=== PATIENT | female | born 1990 | race Caucasian/White ===

== ENCOUNTER 2019-07-18 10:02 | Emergency (ER) | payer MEDICAID, SELFPAY ==
[2019-07-18 10:23] VITALS: BMI 35.4
[2019-07-18 10:26] VITALS: BP 142/76; PULSE 135; RESP 18; TEMP 37.6; O2SAT 98
[2019-07-18 10:53] LABS: Rapid Strep A Test Negative (Negative)
[2019-07-18 11:05] LABS: Influenza A by IFA Negative (Negative); Influenza B by IFA Negative (Negative)
--- NOTE | 2019-07-18 12:09 | ED_ITS ---
HPI - General Adult General: Chief complaint: General Medical Stated complaint: hard to swollow Time Seen by Provider: 07/18/19 11:48 Source: patient Mode of arrival: ambulatory Limitations: no limitations History of Present Illness: HPI narrative: Patient comes in today with 2-day episode of sore throat. Patient appears unwell. Patient appears in mild to moderate pain. Respirations are even, airway is intact. Patient is managing secretions well. Review of Systems General: Reports: 10 or more systems reviewed and unremarkable except in HPI and below ENMT: Reports: throat pain PFSH ED PFSH: Statuses (acute, chronic, etc) shown below reflect problem list status as previously entered and may not be historically accurate Social History Smoking and tobacco status: never smoked Female Reproductive History: Date of last menstrual period: 06/26/19 Physical Exam Const: COMMON NORMALS: no apparent distress and oriented x3 GENERAL APPEARANCE: cooperative HENMT: COMMON NORMALS: normocephalic, external ears normal, EAC's normal, TM's normal bilaterally and external nose normal HEAD & SCALP: normal to inspection and normocephalic FACE & SINUS: normal facial exam NOSE: external nose normal GENERAL EAR: hearing not grossly impaired EXTERNAL EAR: Yes external ears normal EXTERNAL AUDITORY CANAL: EAC's normal TYMPANIC MEMBRANE: TM's normal bilaterally MOUTH: oral and palatal mucosa normal THROAT: tonsils abnormal bilateral erythema, exudates and hypertrophy Eye: COMMON NORMALS: PERRL and EOMs intact bilaterally PUPIL: Yes PERRL Neck/C-Spine: COMMON NORMALS: full ROM and no lymphadenopathy Lymph: LYMPHATIC: no lymphedema noted Chest: COMMONS NORMALS: inspection of chest normal and palpation of chest normal Resp: COMMON NORMALS: normal respiratory effort and clear to auscultation bilaterally AUSCULTATION: clear to auscultation bilaterally Cardio: COMMON NORMALS: regular rate and regular rhythm RATE: regular rate RHYTHM: regular rhythm GI: COMMON NORMALS: normal to inspection, nondistended, normoactive bowel sounds and non-tender : COMMON NORMALS: Yes no CVA tenderness BLADDER/KIDNEY EXAM: Yes no CVA tenderness Back/Pelvis: COMMON NORMALS: no CVA tenderness and thoracic and lumbar spine normal to inspection Extremity: COMMON NORMALS: normal to inspection GENERAL: No edema Neuro: COMMON NORMALS: oriented x3, moves all extremities and no focal motor deficits Psych: COMMON NORMALS: mental status grossly normal and cooperative Skin: COMMON NORMALS: no rashes or lesions noted GENERAL SKIN EXAM: no rashes or lesions noted Course Vital Signs: Vital signs: Vital Signs Temperature 99.6 F 07/18/19 10:26 Pulse Rate 135 H 07/18/19 10:26 Respiratory Rate 18 07/18/19 10:26 Blood Pressure 142/76 07/18/19 10:26 Pulse Oximetry 98 07/18/19 10:26 MDM - General Adult MDM Narrative: Medical decision making narrative: Patient comes in today with sore throat and tonsillar enlargement. Exam notes bilateral tonsillar hypertrophy with exudate. Patient handle secretions well. Airway is intact. Differential diagnosis includes tonsillitis, Ludewig's angina, peritonsillar abscess, strep pharyngitis, infectious mono. Laboratory values were significant for elevated white blood cell count 15,000, normal liver enzymes, negative flu and strep. Reviewed exam with patient with recommendations for antibiotics and steroids. Patient reports understanding did have improvement after a dose of Decadron in the ER with discomfort and swelling. Lab Data: Labs: Lab Results 07/18/19 07/18/19 07/18/19 Range/Units 10:30 10:30 12:30 WBC 15.5 H (4.0-10.0) 10^3/ uL RBC 4.63 (4.1-5.3) 10^6/u L Hgb 13.1 (11.5-15.3) g/dL Hct 40.9 (37.0-47.0) % MCV 88.3 (81-99) fL MCH 28.3 (28.0-34.0) pg MCHC 32.0 (30.0-36.0) g/dL RDW 12.9 (12.1-15.1) % Plt Count 213 (130-400) 10^3/c mm MPV 10.6 H (7.4-10.4) fL Neut % (Auto) 85.2 % Lymph % (Auto) 7.2 % [place] % (Auto) 6.9 % Eos % (Auto) 0.0 % Baso % (Auto) 0.2 % Neut # (Auto) 13.2 H (1.8-7.7) 10^3/u L Lymph # (Auto) 1.1 (0.8-4.8) 10^3/u L [place] # (Auto) 1.1 H (0.2-0.9) 10^3/u L Eos # (Auto) 0.0 (0.0-0.8) 10^3/u L Baso # (Auto) 0.0 (0.0-0.1) 10^3/u L Nucleated RBC % (a uto) 0 % Nucleated RBCs # 0.0 /100WBC Sodium (136-145) mmol/L Potassium (3.5-5.1) mmol/L Chloride (98-107) mmol/L Carbon Dioxide (22-29) mmol/L Anion Gap (5-19) BUN (6-20) mg/dL Creatinine (0.5-0.9) mg/dL GFR Calculation (90-130) mL/min Glucose (74-109) mg/dL Calcium (8.5-10.5) mg/dL Total Bilirubin (0.15-1.2) mg/dL AST (0-32) U/L ALT (0-33) U/L Alkaline Phosphata se (35-105) IU/L Total Protein (6.6-8.7) g/dL Albumin (3.5-5.2) g/dL Globulin (1.3-4.6) g/dL Influenza Type A A g Negative (Negative) POC Influenza B Ag Negative (Negative) Group A Strep Rapi d Negative (Negative) 07/18/19 Range/Units 12:30 WBC (4.0-10.0) 10^3/ uL RBC (4.1-5.3) 10^6/u L Hgb (11.5-15.3) g/dL Hct (37.0-47.0) % MCV (81-99) fL MCH (28.0-34.0) pg MCHC (30.0-36.0) g/dL RDW (12.1-15.1) % Plt Count (130-400) 10^3/c mm MPV (7.4-10.4) fL Neut % (Auto) % Lymph % (Auto) % [place] % (Auto) % Eos % (Auto) % Baso % (Auto) % Neut # (Auto) (1.8-7.7) 10^3/u L Lymph # (Auto) (0.8-4.8) 10^3/u L [place] # (Auto) (0.2-0.9) 10^3/u L Eos # (Auto) (0.0-0.8) 10^3/u L Baso # (Auto) (0.0-0.1) 10^3/u L Nucleated RBC % (a uto) % Nucleated RBCs # /100WBC Sodium 133 L (136-145) mmol/L Potassium 3.7 (3.5-5.1) mmol/L Chloride 99 (98-107) mmol/L Carbon Dioxide 20 L (22-29) mmol/L Anion Gap 17.7 (5-19) BUN 10 (6-20) mg/dL Creatinine 0.7 (0.5-0.9) mg/dL GFR Calculation 100.4 (90-130) mL/min Glucose 109 (74-109) mg/dL Calcium 9.8 (8.5-10.5) mg/dL Total Bilirubin 0.5 (0.15-1.2) mg/dL AST 12 (0-32) U/L ALT 12 (0-33) U/L Alkaline Phosphata se 103 (35-105) IU/L Total Protein 7.4 (6.6-8.7) g/dL Albumin 4.3 (3.5-5.2) g/dL Globulin 3.1 (1.3-4.6) g/dL Influenza Type A A g (Negative) POC Influenza B Ag (Negative) Group A Strep Rapi d (Negative) Discharge Plan Discharge Patient Disposition: Home, Self-Care Clinical Impression: Acute bacterial tonsillitis Condition: Stable Prescriptions: New clindamycin HCl 150 mg capsule 450 mg PO BID 10 Days Qty: 60 RF: 0 prednisone 20 mg tablet 20 mg PO DAILY 5 Days Qty: 5 RF: 0 Discharge Orders: Discharge Order (Routine); Ordered 07/18/19 Ordered By: Grayson Riley Referrals: Emily Lin MD [Primary Care Provider] - Discharge Diet: Usual diet Discharge Activity: Resume usual activity Patient Instructions: Tonsillitis (ED) Activity Restrictions/Additional Instructions: Activity as tolerated Acetaminophen or ibuprofen for pain Follow-up as needed Return to ER for any concerns Coding Level of Care Code ED Monitor Tech for Chg Fwd Exam Problem Focused
[2019-07-18] MEDS: dexamethasone 10 mg/mL INJ IM (12:37)
[2019-07-18 12:41] LABS: Basophils % 0.2 %; Hematocrit 40.9 % (37.0-47.0); Hemoglobin 13.1 g/dL (11.5-15.3); Lymphocytes # 1.1 10^3/uL (0.8-4.8); Lymphocytes % 7.2 %; Mean Corpuscular Hemoglobin 28.3 pg (28.0-34.0); Mean Corpuscular Volume 88.3 fL (81-99); Mean Platelet Volume 10.6 fL (7.4-10.4); Monocytes # 1.1 10^3/uL (0.2-0.9); Monocytes % 6.9 %; Neutrophils # 13.2 10^3/uL (1.8-7.7); Neutrophils % 85.2 %; Nucleated Red Blood Cells % 0 %; Platelet Count 213 10^3/cmm (130-400); Red Blood Count 4.63 10^6/uL (4.1-5.3); Red Cell Distribution Width 12.9 % (12.1-15.1); White Blood Count 15.5 10^3/uL (4.0-10.0)
[2019-07-18 12:56] LABS: Alanine Aminotransferase 12 U/L (0-33); Albumin Level 4.3 g/dL (3.5-5.2); Alkaline Phosphatase 103 IU/L (35-105); Anion Gap 17.7 (5-19); Aspartate Amino Transferase 12 U/L (0-32); Blood Urea Nitrogen 10 mg/dL (6-20); Calcium 9.8 mg/dL (8.5-10.5); Carbon Dioxide 20 mmol/L (22-29); Chloride 99 mmol/L (98-107); Creatinine Clr Calc Pharmacy 129.0714; Globulin 3.1 g/dL (1.3-4.6); Glomerular Filtration Rate 100.4 mL/min (90-130); Glucose 109 mg/dL (74-109); Potassium 3.7 mmol/L (3.5-5.1); Sodium 133 mmol/L (136-145); Total Bilirubin 0.5 mg/dL (0.15-1.2); Total Protein 7.4 g/dL (6.6-8.7)
== END 2019-07-18 13:30 | disposition home or self-care (01) ==
PROVIDERS: Family Medicine; Emergency Provider Nurse Practitioner Family; Family Provider Family Medicine; PCP Family Medicine
DX: J03.80 Acute tonsillitis due to other specified organisms (principal)
CPT/HCPCS: 36415; 80053; 85025; 87081; 87804; 87880; 96372; 99282; J1100

== ENCOUNTER 2019-09-24 11:25 | Outpatient (CLI) | payer MEDICAID, SELFPAY ==
--- NOTE | 2019-09-24 11:30 | XR_ITS ---
WS: [id number] ANKLE LEFT TECHNIQUE: 3 views of the left ankle CLINICAL INFORMATION: L ANKLE PAIN COMPARISON: None. FINDINGS: Normal ankle mortise. Talar dome is normal. No visualized fractures. Normal visualized soft tissues. Slightly hypertrophic spurring along the anterior tibial plafond. Normal medial and lateral malleolus . XR/XR ankle LT min 3V* [id number] IMPRESSION: No acute fractures
== END 2019-09-24 11:26 | disposition home or self-care (01) ==
LOC: RADWPI 11:28
PROVIDERS: Family Provider Family Medicine; PCP Family Medicine; Visit Provider Family Medicine
DX: M25.572 Pain in left ankle and joints of left foot (principal)
CPT/HCPCS: 73610

== ENCOUNTER → 2019-11-19 14:13 | Outpatient (BNVA) | payer MEDICAID, SELFPAY | PROVIDERS: Family Provider Family Medicine; PCP Family Medicine; Referring Provider Family Medicine; Visit Provider Podiatrist Foot & Ankle Surgery | DX: M25.572 Pain in left ankle and joints of left foot (principal) | CPT/HCPCS: 73610 ==

== ENCOUNTER 2020-03-10 14:56 | Emergency (ER) | payer MEDICAID, SELFPAY ==
[2020-03-10 14:59] VITALS: BP 124/77; PULSE 96; RESP 18; TEMP 36.3; O2SAT 98; BMI 38.0
--- NOTE | 2020-03-10 15:28 | ED_ITS ---
HPI - Recheck/Abnormal Lab/Rx General: Chief Complaint: Recheck/Abnormal Lab/Rx Stated Complaint: wants test Time Seen by Provider: 03/10/20 15:17 Source: patient Mode of arrival: ambulatory Limitations: no limitations History of Present Illness: HPI narrative: Pt presents after positive preg test last night, cramping today, states no period in 2 months (on BC pills) Review of Systems General: Reports: 10 or more systems reviewed and unremarkable except in HPI and below PFSH ED PFSH: Social History Smoking and tobacco status: never smoked Alcohol intake: never Substance/Drug Use: never Female Reproductive History: Date of last menstrual period: 01/08/20 Physical Exam Const: COMMON NORMALS: no acute distress, patient oriented x3, no limitations and alert GENERAL APPEARANCE: cooperative and comfortable ORIENTATION/CONSCIOUSNESS: Yes awake, Yes oriented to person, Yes oriented to place and Yes oriented to time HENMT: COMMON NORMALS: normocephalic, atraumatic, external ears normal, EAC's normal, TM's normal bilaterally and Normal external nose present HEAD & SCALP: normal to inspection, normocephalic and atraumatic FACE & SINUS: normal facial exam, sinuses nontender and face symmetric NOSE: Normal external nose present, Normal nares present and No nasal discharge present EXTERNAL EAR: Yes external ears normal EXTERNAL AUDITORY CANAL: EAC's normal TYMPANIC MEMBRANE: TM's normal bilaterally MOUTH: Normal oral and palatal mucosa present, lip normal and tongue normal THROAT: posterior oropharynx normal, tonsils normal and uvula midline Eye: COMMON NORMALS: Equal, round and reactive pupils present, EOMs intact bilaterally and conjunctivae normal GENERAL EYE: appearance normal, both eyes and all related structures and normal light reflex EYELID: eyelids normal CONJUNCTIVA: Yes conjunctivae normal PUPIL: Yes Equal, round and reactive pupils present EOM: Yes EOM abnormal DIRECT OPHTHALMOSCOPY: Yes normal light reflex Neck/C-Spine: COMMON NORMALS: full ROM, no lymphadenopathy, supple, no meningeal signs, no JVD and Thyroid normal GENERAL: Yes normal visual inspection THYROID: Thyroid normal CERVICAL SPINE: Yes cervical ROM normal and Yes normal cervical lordosis Lymph: LYMPHATIC: no lymphadenopathy noted Chest: COMMONS NORMALS: normal inspection of the chest and normal palpation of entire chest wall Resp: COMMON NORMALS: normal respiratory effort, No retractions and clear to auscultation bilaterally AUSCULTATION: clear to auscultation bilaterally Cardio: COMMON NORMALS: no JVD, regular rate, regular rhythm, S1 normal heart sound present, S2 normal heart sound present, No gallops present (Cardio), No clicks present (Cardio), No murmurs present (Cardio), No rub (Cardio) and Peripheral pulses 2+ throughout RATE: regular rate RHYTHM: regular rhythm HEART SOUNDS: S1 normal heart sound present and S2 normal heart sound present PERIPHERAL PULSES: Peripheral pulses 2+ throughout GI: COMMON NORMALS: Normal to inspection, nondistended, normoactive bowel sounds present, Soft to palpation, non-tender and no masses PALPATION: Yes Soft to palpation : COMMON NORMALS: Yes no CVA tenderness and Yes normal external appearance BLADDER/KIDNEY EXAM: Yes no CVA tenderness Back/Pelvis: COMMON NORMALS: no CVA tenderness, thoracic and lumbar spine normal to inspection, no thoracic nor lumbar tenderness and thoraco-lumbar ROM normal Extremity: COMMON NORMALS: normal to inspection, full ROM, capillary refill normal, no joint enlargement, no clubbing, cyanosis or edema, no calf tenderness and no pedal edema GENERAL: Yes normal exam except as noted Neuro: COMMON NORMALS: patient oriented x3, moves all extremities, no focal motor deficits, no sensory deficits noted and gait normal SENSORIUM/ORIENTATION: Yes alert, Yes oriented to person, Yes oriented to place and Yes oriented to time MENINGEAL SIGNS: Yes no meningeal signs Psych: COMMON NORMALS: mental status grossly normal, Normal thought process present, cooperative, normal affect, speech normal and activity/motor behavior normal SPEECH: Yes normal speech THOUGHT PROCESS: Normal thought process present Skin: COMMON NORMALS: no rashes or lesions noted, no wounds and turgor normal GENERAL SKIN EXAM: no rashes or lesions noted and turgor normal Course ED course: Pt presents to ER with complaints of cramping today after positive preg test last night. States she has not had a period in 2 months. Has taken BC pills but not regularly. No spotting. Wanted urine today. Reevaluation(s): Reevaluation #1: Pt hcg quant is greater than 2000. Pt has leuk est and nitrates in UA. Will treat with augmentin and referral to obgyn for further ob care Time: 16:39 Vital Signs: Vital signs: Vital Signs Temperature 97.4 F L 03/10/20 14:59 Pulse Rate 96 03/10/20 14:59 Respiratory Rate 18 03/10/20 14:59 Blood Pressure 124/77 03/10/20 14:59 Pulse Oximetry 98 03/10/20 14:59 MDM - Recheck/Abnormal Lab/Rx Lab Data: Labs: Lab Results 03/10/20 03/10/20 Range/Units 15:30 15:40 Ser , Jaime i-Qnt 2083.00 mIU/mL Urine Color Yellow (Yellow) Urine Appearance Cloudy (CLEAR) Urine pH 5 (5-7) Ur Specific Gravit y 1.020 (1.005-1.030) Urine Protein Neg (Negative) Urine Glucose (UA) Norm (Normal) Urine Ketones 1+ H (Negative) Urine Blood Neg (Negative) Urine Nitrate Positive H (Negative) Urine Bilirubin Neg (Negative) Urine Urobilinogen Neg (Negative) mg/dL Ur Leukocyte Sosa ase 1+ H (Negative) Urine RBC 0-4 H (0-2) /hpf Urine WBC 25-40 H (0-5) /hpf Ur Squamous Epith Cells 0-4 H (0-5) /hpf Amorphous Sediment Not Reportable Urine Bacteria 4+ H (NONE) /hpf Urine Yeast Trace /hpf Discharge Plan Discharge Patient Disposition: Home Clinical Impression: UTI (urinary tract infection) Condition: Stable Prescriptions: New Augmentin 875-125 mg tablet 1 tab PO BID Qty: 14 RF: 0 Discharge Orders: Discharge Order (Routine); Ordered 03/10/20 Ordered By: America Jacob Referrals: Emily Lin MD [Primary Care Provider] - Discharge Diet: Usual diet Discharge Activity: Resume usual activity Activity Restrictions/Additional Instructions: Increase water intake. [facility] call for appt if not scheduled yet Coding Level of Care Code ED Property Management Supervisor for Roney Fwd Exam Comprehensive
[2020-03-10 16:06] LABS: Add Urine Microscopic? YES; Bilirubin Urine Neg (Negative); Blood Urine Neg (Negative); Glucose Urine UA Norm (Normal); Ketones Urine 1+ (Negative); Leukocyte Esterase Urine 1+ (Negative); Nitrate Urine Positive (Negative); Protein Urine Neg (Negative); Urine Appearance Cloudy (CLEAR); Urine Color Yellow (Yellow); Urobilinogen Urine Neg (Negative); pH Urine 5 (5-7)
[2020-03-10 16:07] LABS: RBC Urine 0-4 /hpf (0-2); Squamous Epithelial Cell Urine 0-4 /hpf (0-5); WBC Urine 25-40 /hpf (0-5)
[2020-03-10 16:08] LABS: Add Urine Culture? Yes; Bacteria Urine 4+ /hpf
[2020-03-10 16:44] VITALS: BP 122/77; PULSE 83; RESP 14; O2SAT 99
--- NOTE | 2020-03-11 15:28 | DCPLANNER ---
dog track kennel manager had message to schedule a follow up appointment for patient with [facility]. dog track kennel manager called [facility], spoke with Alondra, gave clinic patients information. dog track kennel manager was told that patients information would be printed and reviewed. Clinic will call patient with appointment information.
--- NOTE | 2020-03-12 14:11 | DCPLANNER ---
Patient has a follow up appointment scheduled for Monday, March 18, 2020 at 11:00 with FOAM FABRICATOR, Nikia More. Clinic will call patient with appointment information.
--- NOTE | 2020-04-04 16:40 | DCPLANNER ---
Patient had a follow up appointment scheduled for 03.18.20 with [facility] - patient did attend appointment.
== END 2020-03-10 16:45 | disposition home or self-care (01) ==
PROVIDERS: Emergency Provider Nurse Practitioner Family; PCP Family Medicine
DX: N39.0 Urinary tract infection, site not specified (principal)
CPT/HCPCS: 12345; 36415; 81001; 84702; 87077; 87086; 87186; 99281; 99282

== ENCOUNTER → 2020-03-30 10:07 | Outpatient (BNVA) | payer MEDICAID, SELFPAY | PROVIDERS: PCP Family Medicine; Visit Provider Obstetrics & Gynecology | DX: O99.211 Obesity complicating pregnancy, first trimester; Z3A.08 8 weeks gestation of pregnancy | CPT/HCPCS: 80053; 80307; 84315; 85027; 86592; 86762; 86803; 86850; 86900; 87077; 87086; 87186; 87340 ==

== ENCOUNTER → 2020-04-27 13:51 | Outpatient (BNVA) | payer MEDICAID, SELFPAY | PROVIDERS: PCP Family Medicine; Visit Provider Obstetrics & Gynecology | DX: O99.210 Obesity complicating pregnancy, unspecified trimester (principal) | CPT/HCPCS: 80053; 82950; 84315; 87077; 87086; 87184; 87491; 87591; 88175 ==

== ENCOUNTER → 2020-05-06 08:09 | Outpatient (BNVA) | payer MEDICAID, SELFPAY | PROVIDERS: PCP Family Medicine; Visit Provider Obstetrics & Gynecology | DX: R73.09 Other abnormal glucose (principal) | CPT/HCPCS: 82951; 82952 ==

== ENCOUNTER → 2020-05-28 16:29 | Outpatient (BNVA) | payer MEDICAID, SELFPAY | PROVIDERS: PCP Family Medicine; Visit Provider Nurse Practitioner Women's Health | DX: O99.891 Other specified diseases and conditions complicating pregnancy (principal); R82.71 Bacteriuria; O26.899 Other specified pregnancy related conditions, unspecified trimester; R51.9 Headache, unspecified; O99.211 Obesity complicating pregnancy, first trimester | CPT/HCPCS: 84315; 87077; 87086; 87184 ==

== ENCOUNTER → 2020-07-03 08:36 | Outpatient (BNVA) | payer MEDICAID, SELFPAY | PROVIDERS: Visit Provider Obstetrics & Gynecology | DX: Z34.90 Encounter for supervision of normal pregnancy, unspecified, unspecified trimester (principal) | CPT/HCPCS: 76805; 84315 ==

== ENCOUNTER 2020-07-12 23:55 | Emergency (ER) | payer MEDICAID, SELFPAY ==
[2020-07-13 00:04] VITALS: BP 122/84; PULSE 94; RESP 18; TEMP 36.2; O2SAT 97; BMI 38.9
[2020-07-13 02:03] VITALS: BP 123/78; PULSE 88; RESP 17; O2SAT 97
[2020-07-13 02:13] LABS: INR 0.92 (0.8-1.2); Partial Thromboplastin Time 26.5 SECONDS (23.9-36.7)
[2020-07-13 02:17] LABS: Alanine Aminotransferase 12 U/L (0-33); Albumin Level 3.5 g/dL (3.5-5.2); Alkaline Phosphatase 103 IU/L (35-105); Anion Gap 14.7 (5-19); Aspartate Amino Transferase 13 U/L (0-32); Blood Urea Nitrogen 8 mg/dL (6-20); Calcium 9.5 mg/dL (8.5-10.5); Carbon Dioxide 23 mmol/L (22-29); Chloride 101 mmol/L (98-107); Globulin 3.1 g/dL (1.3-4.6); Glucose 95 mg/dL (65-115); Osmolality Calculated 278 mOsm/kg (285-295); Potassium 3.7 mmol/L (3.5-5.1); Sodium 135 mmol/L (136-145); Total Bilirubin 0.2 mg/dL (0.15-1.2); Total Protein 6.6 g/dL (6.6-8.7)
[2020-07-13 02:24] LABS: Basophils % 0.4 %; Eosinophils # 0.1 10^3/uL (0.0-0.8); Eosinophils % 1.3 %; Hemoglobin 12.1 g/dL (11.5-15.3); Lymphocytes # 2.1 10^3/uL (0.8-4.8); Lymphocytes % 21.3 %; Mean Corpuscular HGB Conc 32.7 g/dL (30.0-36.0); Mean Corpuscular Hemoglobin 28.3 pg (28.0-34.0); Mean Corpuscular Volume 86.4 fL (81-99); Mean Platelet Volume 11.3 fL (7.4-10.4); Monocytes # 0.6 10^3/uL (0.2-0.9); Monocytes % 5.7 %; Neutrophils % 70.8 %; Nucleated Red Blood Cells % 0 %; Platelet Count 212 10^3/cmm (130-400); Red Blood Count 4.28 10^6/uL (4.1-5.3); Red Cell Distribution Width 13.8 % (12.1-15.1); White Blood Count 9.8 10^3/uL (4.0-10.0)
[2020-07-13 02:37] LABS: Add Urine Microscopic? NO
[2020-07-13 02:51] LABS: Bilirubin Urine Neg (Negative); Blood Urine Neg (Negative); Glucose Urine UA Norm (Normal); Ketones Urine Negative (Negative); Leukocyte Esterase Urine Negative (Negative); Nitrate Urine Negative (Negative); Protein Urine Neg (Negative); Specific Gravity, Urine 1.015 (1.005-1.030); Urine Appearance Clear (CLEAR); Urine Color Yellow (Yellow); Urobilinogen Urine Norm (Negative); pH Urine 7 (5-7)
[2020-07-13 03:41] VITALS: BP 120/76; PULSE 82; RESP 18; O2SAT 97
[2020-07-13] MEDS: famotidine 20 mg Tablet PO (03:41)
--- NOTE | 2020-07-13 08:45 | W.ED.NAVMDI ---
HPI - Nausea/Vomiting/Diarrhea General: Chief complaint: Nausea/Vomiting/Diarrhea Stated complaint: Bloody vomit, no ab pain, 23 weeks preg Time Seen by Provider: 07/13/20 01:55 History of Present Illness: HPI Narrative: 30-year-old female presenting with 2 episodes of bloody emesis at home. She states that she is 23 weeks . Vomiting is not uncommon for her. She vomited once last night that was nonbloody. She then vomited 2 more times, each having an increase in the amount of bloody content along with the vomit. The third and last time she vomited, there were small clots in it. She denies any belly pain. There is no diarrhea. She is still feeling her baby move. No vaginal bleeding or discharge MD elicited complaint: nausea and vomiting Onset (ago): hour(s) Description of vomiting: food contents, watery and bloody Associated nausea: Yes Associated abdominal pain: No Quality: other Exacerbating factors: none Relieving factors: none Associated symtoms: Reports nausea; Denies chest pain, cough, dizziness, epistaxis, fevers/chills, rash or short of breath Review of Systems ENMT: Denies: epistaxis Card: Denies: chest pain Resp: Denies: dyspnea or productive cough GI: Reports: nausea, vomiting and hematemesis; Denies: abdominal pain Neuro: Denies: dizziness [facility] ED PFSH: Medical History (Updated 07/13/20 @ 03:19 by Jose R Neves DO) Intermittent asthma with acute exacerbation No pertinent past medical history neghx:htn,dm,thyroid,dvt/pe,herpes denies past partner herpes hx Surgical History History of placement of ear tubes Family History Denies family history of Colon cancer Ovarian cancer Diabetes Clotting disorder Breast cancer Bleeding disorder Hypertension Uterine cancer Thyroid disease Stroke Social History Smoking and tobacco status: never smoked Alcohol intake: current Additional social history: Tobacco use: never Alcohol use: occasional prior to Drug use: never Female Reproductive History: Date of last menstrual period: 01/08/20 Physical Exam Const: GENERAL APPEARANCE: well developed ORIENTATION/CONSCIOUSNESS: Yes oriented to person, Yes oriented to place and Yes oriented to time HENMT: COMMON NORMALS: normocephalic and Normal external nose present HEAD & SCALP: normocephalic FACE & SINUS: normal facial exam NOSE: Normal external nose present and No nasal discharge present Eye: COMMON NORMALS: Equal, round and reactive pupils present, EOMs intact bilaterally and conjunctivae normal EYELID: eyelids normal CONJUNCTIVA: Yes conjunctivae normal PUPIL: Yes Equal, round and reactive pupils present Neck/C-Spine: GENERAL: No tracheal deviation Chest: COMMONS NORMALS: normal inspection of the chest CHEST: No tenderness Resp: COMMON NORMALS: clear to auscultation bilaterally EFFORT & INSPECTION: No tachypneic, No respiratory distress, No retractions, No uses accessory muscles and No tracheal deviation AUSCULTATION: clear to auscultation bilaterally, no rhonchi, no wheezes and lung sounds not diminished Cardio: COMMON NORMALS: regular rate and regular rhythm RATE: regular rate RHYTHM: regular rhythm HEART SOUNDS: no murmurs PERIPHERAL PULSES: radial pulses present GI: INSPECTION: No abdominal distension AUSCULTATION: No Hyperactive bowel sounds present and No Hypoactive bowel sounds present PALPATION: No Tenderness to palpation present (GI), No Guarding due to palpation present (GI) and No Rigid due to palpation PERCUSSION: no dullness to percussion and no tympanic to percussion Neuro: SENSORIUM/ORIENTATION: Yes oriented to person, Yes oriented to place and Yes oriented to time Psych: COMMON NORMALS: mental status grossly normal Skin: COMMON NORMALS: no rashes or lesions noted GENERAL SKIN EXAM: no rashes or lesions noted Course Vital Signs: Vital signs: Vital Signs Temperature 97.2 F L 07/13/20 00:04 Pulse Rate 82 07/13/20 03:41 Respiratory Rate 18 07/13/20 03:41 Blood Pressure 120/76 07/13/20 03:41 Pulse Oximetry 97 07/13/20 03:41 MDM - Nausea/Vomiting/Diarrhea MDM Narrative: Medical decision making narrative: 30-year-old 23-week female with 2 episodes of blood-streaked vomitus. Her hemoglobin is 12.1 her other labs are benign. She is asymptomatic at this point discussed options with her. Given the risk of radiation, and the low yield of CT, decision was made not to pursue that close self observation was employed. She is prescribed Pepcid and Carafate, and will return for any further bloody vomitus. She will let her physician know later this morning she was here, in case they want to repeat an H&H at some point in the near future this week. Lab Data: Labs: Lab Results 07/13/20 07/13/20 07/13/20 Range/Units 01:52 01:52 01:52 WBC 9.8 (4.0-10.0) 10^3/ uL RBC 4.28 (4.1-5.3) 10^6/u L Hgb 12.1 (11.5-15.3) g/dL Hct 37.0 (37.0-47.0) % MCV 86.4 (81-99) fL MCH 28.3 (28.0-34.0) pg MCHC 32.7 (30.0-36.0) g/dL RDW 13.8 (12.1-15.1) % Plt Count 212 (130-400) 10^3/c mm MPV 11.3 H (7.4-10.4) fL Neut % (Auto) 70.8 % Lymph % (Auto) 21.3 % [place] % (Auto) 5.7 % Eos % (Auto) 1.3 % Baso % (Auto) 0.4 % Neut # (Auto) 6.90 (1.8-7.7) 10^3/u L Lymph # (Auto) 2.1 (0.8-4.8) 10^3/u L [place] # (Auto) 0.6 (0.2-0.9) 10^3/u L Eos # (Auto) 0.1 (0.0-0.8) 10^3/u L Baso # (Auto) 0.0 (0.0-0.1) 10^3/u L Nucleated RBC % (a uto) 0 % Nucleated RBCs # 0.0 /100WBC PT 12.60 (12.1-14.9) SECO NDS INR 0.92 (0.8-1.2) APTT 26.5 (23.9-36.7) SECO NDS Sodium 135 L (136-145) mmol/L Potassium 3.7 (3.5-5.1) mmol/L Chloride 101 (98-107) mmol/L Carbon Dioxide 23 (22-29) mmol/L Anion Gap 14.7 (5-19) BUN 8 (6-20) mg/dL Creatinine 0.6 (0.5-0.9) mg/dL GFR Calculation 119.0 (90-130) mL/min Glucose 95 (65-115) mg/dL Calculated Osmolal ity 278 L (285-295) mOsm/k g Calcium 9.5 (8.5-10.5) mg/dL Total Bilirubin 0.2 (0.15-1.2) mg/dL AST 13 (0-32) U/L ALT 12 (0-33) U/L Alkaline Phosphata se 103 (35-105) IU/L Total Protein 6.6 (6.6-8.7) g/dL Albumin 3.5 (3.5-5.2) g/dL Globulin 3.1 (1.3-4.6) g/dL Urine Color (Yellow) Urine Appearance (CLEAR) Urine pH (5-7) Ur Specific Gravit y (1.005-1.030) Urine Protein (Negative) Urine Glucose (UA) (Normal) Urine Ketones (Negative) Urine Blood (Negative) Urine Nitrate (Negative) Urine Bilirubin (Negative) Urine Urobilinogen (Negative) mg/dL Ur Leukocyte Sosa ase (Negative) Blood Type Rho(D) Type Antibody Screen 07/13/20 07/13/20 Range/Units 01:52 02:15 WBC (4.0-10.0) 10^3/ uL RBC (4.1-5.3) 10^6/u L Hgb (11.5-15.3) g/dL Hct (37.0-47.0) % MCV (81-99) fL MCH (28.0-34.0) pg MCHC (30.0-36.0) g/dL RDW (12.1-15.1) % Plt Count (130-400) 10^3/c mm MPV (7.4-10.4) fL Neut % (Auto) % Lymph % (Auto) % [place] % (Auto) % Eos % (Auto) % Baso % (Auto) % Neut # (Auto) (1.8-7.7) 10^3/u L Lymph # (Auto) (0.8-4.8) 10^3/u L [place] # (Auto) (0.2-0.9) 10^3/u L Eos # (Auto) (0.0-0.8) 10^3/u L Baso # (Auto) (0.0-0.1) 10^3/u L Nucleated RBC % (a uto) % Nucleated RBCs # /100WBC PT (12.1-14.9) SECO NDS INR (0.8-1.2) APTT (23.9-36.7) SECO NDS Sodium (136-145) mmol/L Potassium (3.5-5.1) mmol/L Chloride (98-107) mmol/L Carbon Dioxide (22-29) mmol/L Anion Gap (5-19) BUN (6-20) mg/dL Creatinine (0.5-0.9) mg/dL GFR Calculation (90-130) mL/min Glucose (65-115) mg/dL Calculated Osmolal ity (285-295) mOsm/k g Calcium (8.5-10.5) mg/dL Total Bilirubin (0.15-1.2) mg/dL AST (0-32) U/L ALT (0-33) U/L Alkaline Phosphata se (35-105) IU/L Total Protein (6.6-8.7) g/dL Albumin (3.5-5.2) g/dL Globulin (1.3-4.6) g/dL Urine Color Yellow (Yellow) Urine Appearance Clear (CLEAR) Urine pH 7 (5-7) Ur Specific Gravit y 1.015 (1.005-1.030) Urine Protein Neg (Negative) Urine Glucose (UA) Norm (Normal) Urine Ketones Negative (Negative) Urine Blood Neg (Negative) Urine Nitrate Negative (Negative) Urine Bilirubin Neg (Negative) Urine Urobilinogen Norm (Negative) mg/dL Ur Leukocyte Sosa ase Negative (Negative) Blood Type O Positive Rho(D) Type Positive Antibody Screen Negative Discharge Plan Discharge Patient Disposition: Home Clinical Impression: Acute upper gastrointestinal bleeding Condition: Stable Prescriptions: New Pepcid 40 mg tablet 40 mg PO DAILY Qty: 30 RF: 0 Carafate 1 gram tablet 1 g PO Q6H 84 Days Qty: 336 RF: 0 No Action prenat.vits,kenneth,[id number] Tablet 1 tab PO DAILY RF: 0 cephalexin [Keflex] 500 mg capsule 500 mg PO BID Qty: 28 RF: 0 cephalexin [Keflex] 250 mg capsule 250 mg PO DAILY Qty: 30 RF: 7 Discharge Orders: Discharge ED (Routine); Ordered 07/13/20 Ordered By: Jose R Neves Discharge Diet: Advance as tolerated Discharge Activity: Increase activity as tolerated Patient Instructions: Gastrointestinal Bleeding (ED) Activity Restrictions/Additional Instructions: Return for continued vomiting of blood despite treatment, abdominal pain, fever greater than 100, any other bleeding such as vaginal bleeding, or other concerning symptoms. Call your doctor later today and let them know you were here. They may want to recheck your blood count in a few days Coding Level of Care Code ED Floor Installer for Roney Chahal
== END 2020-07-13 03:42 | disposition home or self-care (01) ==
PROVIDERS: Emergency Provider Emergency Medicine
DX: O99.612 Diseases of the digestive system complicating pregnancy, second trimester (principal); K92.2 Gastrointestinal hemorrhage, unspecified; Z3A.23 23 weeks gestation of pregnancy
CPT/HCPCS: 12345; 80053; 81003; 85025; 85610; 85730; 86850; 86900; 99282; 99283

== ENCOUNTER → 2020-07-24 08:01 | Outpatient (BNVA) | payer MEDICAID, SELFPAY | PROVIDERS: Visit Provider Obstetrics & Gynecology | DX: O99.891 Other specified diseases and conditions complicating pregnancy (principal); R82.71 Bacteriuria | CPT/HCPCS: 84315; 87086 ==

== ENCOUNTER → 2020-08-17 10:28 | Outpatient (BNVA) | payer MEDICAID, SELFPAY | PROVIDERS: Visit Provider Obstetrics & Gynecology | DX: O99.891 Other specified diseases and conditions complicating pregnancy (principal); R82.71 Bacteriuria; R51.9 Headache, unspecified; O99.213 Obesity complicating pregnancy, third trimester; O99.613 Diseases of the digestive system complicating pregnancy, third trimester; K20.90 Esophagitis, unspecified without bleeding; Z3A.28 28 weeks gestation of pregnancy | CPT/HCPCS: 82950; 84315; 85027 ==

== ENCOUNTER → 2020-08-21 08:09 | Outpatient (BNVA) | payer MEDICAID, SELFPAY | PROVIDERS: Visit Provider Obstetrics & Gynecology | DX: R73.09 Other abnormal glucose (principal) | CPT/HCPCS: 82951; 82952 ==

== ENCOUNTER 2020-09-14 09:40 | Outpatient (CLI) | payer MEDICAID, SELFPAY ==
[2020-09-14 09:51] VITALS: BP 119/71; PULSE 85; TEMP 35.9
[2020-09-14 09:52] VITALS: RESP 17
[2020-09-14 09:53] VITALS: BMI 38.2
[2020-09-14 10:11] VITALS: BP 118/71; PULSE 83
[2020-09-14 10:31] VITALS: BP 117/66; PULSE 83
[2020-09-14 11:16] VITALS: BP 117/66; PULSE 83; RESP 18; TEMP 36.5
[2020-09-14 14:00] VITALS: BP 117/66; PULSE 83; RESP 18; TEMP 36.5
== END 2020-09-14 13:00 | disposition home or self-care (01) ==
LOC: OPOB 09:48 → OBGYN 09:48
PROVIDERS: Visit Provider Obstetrics & Gynecology
DX: O24.419 Gestational diabetes mellitus in pregnancy, unspecified control (principal); Z3A.00 Weeks of gestation of pregnancy not specified
CPT/HCPCS: 59025; 84315

== ENCOUNTER → 2020-10-12 13:27 | Outpatient (BNVA) | payer MEDICAID, SELFPAY | PROVIDERS: Visit Provider Obstetrics & Gynecology | DX: O09.893 Supervision of other high risk pregnancies, third trimester (principal); O24.414 Gestational diabetes mellitus in pregnancy, insulin controlled; K20.90 Esophagitis, unspecified without bleeding; O99.613 Diseases of the digestive system complicating pregnancy, third trimester; O99.891 Other specified diseases and conditions complicating pregnancy; R51.9 Headache, unspecified; O99.213 Obesity complicating pregnancy, third trimester; O99.013 Anemia complicating pregnancy, third trimester; Z3A.36 36 weeks gestation of pregnancy | CPT/HCPCS: 84315; 87081 ==

== ENCOUNTER 2020-10-22 14:05 | Outpatient (CLI) | payer MEDICAID, SELFPAY ==
[2020-10-22 14:30] VITALS: BP 122/78; PULSE 113
[2020-10-22 14:31] VITALS: TEMP 36.8
[2020-10-22 14:34] VITALS: BMI 38.6
== END 2020-10-22 14:53 | disposition home or self-care (01) ==
LOC: OPOB 14:13 → OBGYN 14:14
PROVIDERS: Visit Provider Obstetrics & Gynecology
DX: O26.899 Other specified pregnancy related conditions, unspecified trimester (principal); Z3A.00 Weeks of gestation of pregnancy not specified
CPT/HCPCS: 59025

== ENCOUNTER 2020-10-24 05:32 | Outpatient (CLI) | payer MEDICAID, SELFPAY ==
[2020-10-24 05:40] VITALS: TEMP 35.7
[2020-10-24 05:41] VITALS: BP 118/70; PULSE 94
[2020-10-24 05:48] VITALS: BMI 38.6
[2020-10-24 06:18] VITALS: RESP 17
[2020-10-24 07:53] VITALS: BP 115/62; PULSE 86; TEMP 35.9
[2020-10-24 08:01] VITALS: BP 115/62; PULSE 86; RESP 18; TEMP 35.9
== END 2020-10-24 08:03 | disposition home or self-care (01) ==
LOC: OPOB 05:33 → OBGYN 08:03
PROVIDERS: Visit Provider Obstetrics & Gynecology
DX: O26.899 Other specified pregnancy related conditions, unspecified trimester (principal); Z3A.00 Weeks of gestation of pregnancy not specified; R10.9 Unspecified abdominal pain
CPT/HCPCS: 59025; 99211

== ENCOUNTER → 2020-11-02 08:36 | Outpatient (BNVA) | payer MEDICAID, SELFPAY | PROVIDERS: Visit Provider Obstetrics & Gynecology | DX: O24.414 Gestational diabetes mellitus in pregnancy, insulin controlled (principal); Z3A.00 Weeks of gestation of pregnancy not specified | CPT/HCPCS: 84315; 87635 ==

== ENCOUNTER 2020-11-05 15:05 | Inpatient (IN) | payer MEDICAID, SELFPAY ==
[2020-11-05] VITALS (26 sets, daily range): BP systolic 87–123; BP diastolic 44–77; PULSE 73–187; RESP 15–18; TEMP 36.2–36.8; O2SAT 81–100; BMI 38.2
[2020-11-05] MEDS: miSOPROStol 100 mcg tablet 25 MCG VAGINAL (16:48)
[2020-11-05 17:17] LABS: Basophils % 0.2 %; Eosinophils # 0.1 10^3/uL (0.0-0.8); Eosinophils % 0.9 %; Hematocrit 32.7 % (37.0-47.0); Hemoglobin 10.9 g/dL (11.5-15.3); Lymphocytes # 1.7 10^3/uL (0.8-4.8); Mean Corpuscular HGB Conc 33.3 g/dL (30.0-36.0); Mean Corpuscular Hemoglobin 27.9 pg (28.0-34.0); Mean Corpuscular Volume 83.8 fL (81-99); Mean Platelet Volume 10.8 fL (7.4-10.4); Monocytes # 0.7 10^3/uL (0.2-0.9); Monocytes % 7.2 %; Neutrophils # 7.26 10^3/uL (1.8-7.7); Neutrophils % 73.9 %; Nucleated Red Blood Cells % 0 %; Platelet Count 286 10^3/cmm (130-400); Red Cell Distribution Width 13.8 % (12.1-15.1); White Blood Count 9.8 10^3/uL (4.0-10.0)
[2020-11-05] MEDS: lactated ringers 1,000 ML 999 ML IV (17:49)
[2020-11-05] MEDS: terbutaline 1 mg/mL INJ 0.25 MG SUBCUT (18:07)
[2020-11-05] MEDS: famotidine 20 mg/2 mL INJ IVP (18:12)
[2020-11-05] MEDS: metoclopramide 5 mg/mL SDV 2 mL 10 MG IVP (18:13)
[2020-11-05] MEDS: citric acid-sodium citrate 30 mL UDC PO (18:13)
--- NOTE | 2020-11-05 18:34 | ANES.PREANE2 ---
Pre-Anesthetic Assessment Pre-Anesthetic Assessment: Height/Weight: Height 1.6 m Temp Pulse BP Pulse Ox 97.7 F 187 H 103/55 81 L 11/05/20 15:39 11/05/20 18:11 11/05/20 18:09 11/05/20 18:11 Preop Diagnosis: IUP Proposed Procedure: Familial anesthetic complications: NOne Was Beta Jong taken within 24 hours: N/A Was Clonidine taken within 24 hours: N/A Last intake: NPO > 8 hrs, drinking throughout day Social: Social History: No alcohol and No tobacco Exam: Pre-Anes Outpt Exam: alert, oriented x 3, clear to auscultation bilaterally and regular rate & rhythm Airway: Dentition: Full Metabolic: Metabolic: DM (gestational) and Morbid obesity Anesthetic Plan: ASA status: 2E Anesthesia: Regional (specify below) Risk of > 500 ml blood loss (7ml/kg in children): Yes, adequate IV access and fluids planned Meds/Allergies Current Medications: Current Medications Generic Name Dose Route Start Last Admin Trade Name Freq PRN Reason Stop Dose Admin Lactated Ringer's 1,000 mls @ 999 m ls/hr 11/05/20 16:19 11/05/20 17:49 Lactated Ringers IV 999 mls/hr .Q1H1M PRN Administration Per L&D Rescitati on Protocol Misoprostol 25 mcg 11/05/20 16:30 11/05/20 16:48 Misoprostol 100 Mcg Tablet VAGINAL 11/06/20 00:31 25 mcg Q4H CLARISA Administration PFSH Anesthesia PFSH: Medical History Intermittent asthma with acute exacerbation No pertinent past medical history neghx:htn,dm,thyroid,dvt/pe,herpes denies past partner herpes hx Surgical History History of placement of ear tubes Family History Denies family history of Colon cancer Ovarian cancer Diabetes Clotting disorder Breast cancer Bleeding disorder Hypertension Uterine cancer Thyroid disease Stroke Social History (Updated 11/04/20 @ 15:02 by Ant Pak MD) Smoking and tobacco status: never smoked Alcohol intake: never Additional social history: Tobacco use: never Alcohol use: occasional prior to Drug use: never Female Reproductive History: Date of last menstrual period: 01/08/20 Data Anesthesia CBC & Chem 7: 11/05/20 16:45 Other Labs: Laboratory Results - last 48 hr 11/05/20 16:45 WBC 9.8 RBC 3.90 L Hgb 10.9 L Hct 32.7 L MCV 83.8 MCH 27.9 L MCHC 33.3 RDW 13.8 Plt Count 286 MPV 10.8 H Neut % (Auto) 73.9 Lymph % (Auto) 17.0 Geary % (Auto) 7.2 Eos % (Auto) 0.9 Baso % (Auto) 0.2 Neut # (Auto) 7.26 Lymph # (Auto) 1.7 Geary # (Auto) 0.7 Eos # (Auto) 0.1 Baso # (Auto) 0.0 Nucleated RBC % (auto) 0 Nucleated RBCs # 0.0 Cardiac Studies: No Data to Display
--- NOTE | 2020-11-05 19:39 | P.PCN_ITS ---
PACU note PACU note: VSS, Good respiratory effort, report to HEALTHCARE ECONOMICS CONSULTANT Post-Anesthesia Exam: awake
--- NOTE | 2020-11-05 19:39 | PM.PACU ---
PACU note PACU note: VSS, Good respiratory effort, report to SEISMOLOGY TEACHER Post-Anesthesia Exam: awake
--- NOTE | 2020-11-05 19:42 | P.OP_ITS ---
Operative Report Date of procedure: November 05, 2020 Pre-op Diagnosis: 1. Nonreassuring heart tones in third trimester, 2. at 39-4/7 weeks gestation, 3. Insulin controlled gestational diabetes in third trimester, 4. Anemia in in third trimester, 5. Obesity in p regnancy in third trimester, 6. Undesired fertility Post-op Diagnosis: 1. Nonreassuring heart tones in third trimester, 2. at 39-4/7 weeks gestation, 3. Meconium in fluid, 4. Insulin controlled gestational diabetes in third trimester, 5. Anemia in in third trimester, 6. Obesity in in third trimester, 7. Undesired fertility, 8. Viable female Procedure Done: Primary low transverse section, Tubal ligation (complete salpingectomy) Specimens removed/disposition: Right and left fallopian tubes Surgeon: Ant Pak Site Inspector: None Anesthesia: Other (Spinal) Estimated blood loss (mL): 400 IV fluids (mL): 1,600 Complications: None Findings: 1. Viable female weighing 6 lbs 7 oz (2910 g) with a length of 18-3/4 inches and Apgars of 8 at 1 minute and 9 at 5 minutes. 2. Meconium fluid. 3. Normal-appearing uterus, tubes, and ovaries. Brief History: Patient is a 30-year-old female 4, para 3-0-0-3 with an LMP of 01/06/2020 and an EDC of 11/08/2020 based on a 7-week ultrasound, which placed her at 39-4/7 weeks gestation today. She presented to labor and delivery for induction of labor due to insulin controlled gestational diabetes at 39 weeks gestation. She received 1 dose of Cytotec and approximately 1 hour later she had a 13-minute prolonged deceleration which responded to position changes, fluid bolus, and oxygen. Following the deceleration she developed recurrent, what appeared to be variable decelerations which were not resolving. Since she was still distant from [facility], decision was made to proceed to a primary section. Patient had also stated during the that she did not want any further children and wanted to proceed with a sterilization. At this point she is still adamant that she wants her tubes completely removed. Medicaid consent form had been signed on 08/17/2020. Procedure: Patient was taken to the operating room where spinal anesthesia was obtained. She was prepped and draped in the usual sterile fashion in a dorsal supine position with a leftward tilt. Carreon catheter and sequential compression boots had been placed prior to starting the case. A Pfannenstiel skin incision was made with a knife and carried down to the underlying fascia with the knife. Fascia was incised in the midline with the knife and extended laterally with Cabezas scissors. Superior aspect of the fascia was grasped with Maisha clamps, elevated, and sharply and bluntly dissected. The inferior aspect of the fascia was grasped with Maisha clamps, elevated, and sharply and bluntly dissected. The rectus muscles were in the midline. Peritoneum was sharply entered. Peritoneal incision was extended both superiorly and inferiorly with good visualization of the bladder. Bladder blade was inserted. The vesicouterine peritoneum was tented up and sharply entered. It was extended laterally and the bladder flap was created digitally. Bladder blade was reinserted. A transverse incision was made with the knife in the lower uterine segment. Meconium fluid was obtained upon entry into the uterine cavity. The 's head was delivered and no nuchal cords were noted. The rest of the delivered atraumatically. Nose and mouth were suctioned with bulb suction. Cord was clamped and cut and the was handed off to Dr. Rubi and the waiting nurses. Cord blood was obtained. Placenta was delivered via uterine massage. Patient received 20 units of Pitocin in the IV fluids. The uterus was exteriorized and cleared of clots and debris. The uterine incision was closed in a running locking fashion using 0 Vicryl suture. The incision was imbricated using 0 Vicryl suture in a horizontal mattress fashion. The incision was inspected and noted to be hemostatic. The left fallopian tube was grasped with [place] clamps. The mesosalpinx was transilluminated, identifying the vessels within the mesosalpinx. Using the Voyant sealing device, the mesosalpinx was sealed and cut, completely excising the fallopian tube. The right fallopian tube was grasped with [place] clamps. The mesosalpinx was transilluminated, identifying the vessels within the mesosalpinx. Using the Voyant sealing device, the mesosalpinx was sealed and cut, completely excising the fallopian tube. Posterior cul-de-sac was thoroughly irrigated and cleared of clots and blood. The uterus was returned to the abdomen. The uterine incision was irrigated and noted to be hemostatic. The gutters were cleared of clots and blood. The rectus muscles and peritoneum were reapproximated in the midline using interrupted stitches of 2-0 Vicryl suture. The muscle layer was irrigated and noted to be hemostatic. The fascia was reapproximated using 0 Vicryl suture in a running fashion. The subcutaneous layer was irrigated and brought to hemostasis using electrocautery. It was reapproximated using 3-0 plain suture in an interrupted fashion. Skin was reapproximated using 4-0 Vicryl suture in a subcuticular fashion. Steri-Strips were applied. Patient tolerated the procedures well. Sponge, needle, and instrument counts were correct. DRAINS: Carreon catheter POSTOPERATIVE STATUS: The patient was left to recover in satisfactory condition
--- NOTE | 2020-11-05 20:07 | PM.OBGYHP ---
Providers/Chief Complaint Admitting Physician: Ant Pak MD Chief Complaint: induction HPI MORTGAGE LOAN ORIGINATOR History of Present Illness Patient is a 30-year-old female 4, para 3-0-0-3 with an LMP of 01/06/2020 and an EDC of 11/08/2020 based on a 7-week ultrasound, which placed her at 39-4/7 weeks gestation. Patient presented to labor and delivery at approximately 1500 on 11/05/2020 for Cytotec cervical ripening and induction of labor due to insulin controlled gestational diabetes at 39+ weeks gestation. She was without complaints at the time. She reported having occasional contractions. She denied vaginal bleeding. She denied leaking of fluid. Baby had been moving well. care has been mainly provided by Dr. Ant Pak at [facility]. Her has been complicated by insulin controlled gestational diabetes, maternal obesity, and anemia in . LABS 03/30/2020 Blood type: O+ Antibody screen: Negative CBC: WBC 8.9, Hgb 13.5, Hct 41.5, MCV 85.0, Plt 254. Rubella : 469.5 Hepatitis B surface antigen: Nonreactive Hepatitis C antibody: Nonreactive RPR: Nonreactive HIV: Declined Drug screen: Marijuana positive Urine culture: 80,000-90,000 CFU, E. coli ----> Keflex 500mg bid x 7 days CF: Declined. 04/27/2020 Pap smear: NILM Gonorrhea: Negative Chlamydia: Negative Early GCT: 192 Urine culture: >100,00 CFU E. Coli---- (Asymptomatic---suspicious urine 2 weeks s/p abx): Keflex 500mg bid x 10 days 05/06/2020 3-hour GTT: 87/215/143/50 (1 reading elevated) 05/28/2020 Quad screen: Declined Urine culture TIFFANIE (but also symptomatic): >100,000 cfu E.Coli----> Keflex 500mg bid x 14 days then 250mg daily the rest of the 08/17/2020 28 week CBC: WBC 6.2, Hgb 10.4, HCT 31.5, MCV 86.3, PLT 198. GCT: 193 08/21/2020 3 hr GTT: 74/204/158/49 10/12/2020 GBS: Negative. OB Ultrasound LMP 01/06/2020 ---> 10/12/2020 ---> NEW WORKING EDC: 11/08/2020 1. 03/26/2020 ---> 7-4/7 WG ---> EDC 11/08/2020 --- CHANGE IN EDC Performed [facility]. FHR 152 bpm. CRL 1.32 cm. 2. 07/03/2020 ---> 21-6/7 WG ---> EDC 11/07/2020. EFW 1 lb 1 oz (484 g) 54%. Performed at [facility]. Consistent with dates. Normal anatomic survey EXCEPT for difficulty seeing four-chamber heart. Female. Cephalic. FHR 138 bpm. Fundal anterior placenta without previa. Grade 1. Visually normal amniotic fluid. PARALLEL COMPUTING SOFTWARE ENGINEER 4.0 cm. Cervix 4.6 cm. 3. 07/24/2020 ---> 25-1/7 WG ---> EDC 11/05/2020. EFW 1 lb 12 oz (808 g) 72%. Performed at [facility]. Consistent with dates. Normal four-chamber heart. Female. Cephalic. FHR 140 bpm. Anterior right lateral placenta without previa. Grade 1. MATT 15.1 cm. PARALLEL COMPUTING SOFTWARE ENGINEER 5.2 cm. 4. 09/14/2020 ---> 32-3/7 WG ---> EDC 11/06/2020. EFW 4 lbs 1 oz (1841 g) 30%. Performed at [facility]. Consistent with dates. Female. Breech?double footling. FHR 132 bpm. Anterior placenta without previa. Grade 1. MATT 15.3 cm. PARALLEL COMPUTING SOFTWARE ENGINEER 6.1 cm. 5. 10/12/2020 ---> 35-6/7 WG ---> EDC 11/10/2020. EFW 6 lbs 5 oz (2874 g) 53%. Performed at [facility]. Consistent with dates. Female. Cephalic. FHR 130 bpm. Anterior placenta without previa. Grade 1. MATT 13.9 cm. PARALLEL COMPUTING SOFTWARE ENGINEER 5.5 cm. Review of Systems Const: Denies: fever(s) or chills ENMT: Denies: throat pain or nasal congestion Card: Denies: chest pain or palpitations Resp: Denies: dyspnea, productive cough, non-productive cough or wheezing GI: Denies: abdominal pain, nausea, vomiting, diarrhea or constipation : Denies: difficulty voiding, dysuria, genital pruritis, vaginal bleeding, vaginal discharge or other (Leaking of fluid) Musc: Reports: back pain Neuro: Denies: headache(s) or dizziness Psych: Denies: anxiety or depression Endo: Denies: cold intolerance or heat intolerance Kenn/Lymph: Denies: easy bruising or easy bleeding Medications/Allergies Home Medications Medication Instructions Recorded Confirmed Last Taken Type prenat.vits,kenneth,jcp-avxu-sthza 1 tab PO DAILY 03/18/20 11/02/20 10/23/20 21:00 History ferrous sulfate 325 mg (65 mg 325 mg PO BID #60 tab 08/20/20 11/02/20 10/23/20 21:00 Rx iron) tablet blood-glucose meter #1 ea 08/25/20 11/02/20 Unknown Rx lancets 33 gauge #100 ea 08/25/20 11/02/20 Unknown Rx blood sugar diagnostic #120 ea 09/14/20 11/02/20 Unknown Rx insulin lispro 100 unit/mL 2 unit SUBCUT .COMPLEX ml 09/21/20 11/02/20 10/23/20 21:00 History subcutaneous solution Allergies Allergy/AdvReac Type Severity Reaction Status Date / Time No Known Allergies Allergy Verified 11/02/20 09:01 PFS MORTGAGE LOAN ORIGINATOR PFSH: Medical History (Updated 11/05/20 @ 20:15 by Ant Pak MD) Intermittent asthma with acute exacerbation No pertinent past medical history neghx:htn,dm,thyroid,dvt/pe,herpes denies past partner herpes hx Surgical History History of placement of ear tubes Family History Denies family history of Colon cancer Ovarian cancer Diabetes Clotting disorder Breast cancer Bleeding disorder Hypertension Uterine cancer Thyroid disease Stroke Social History Smoking and tobacco status: never smoked Alcohol intake: never Additional social history: Tobacco use: never Alcohol use: occasional prior to Drug use: never History History History 4 Term 3 Miscarriages/Ectopic 0 0 Living Children 3 Other History: 1--> 06/10/2012. Female, 6 lbs 13 oz, Full-term. Epidural. Vaginal delivery. Delivered by Dr. Lin at [facility] in [place], [place]. No complications. 2--> 06/12/2013. Female, 7 lbs 6 oz, Full-term. Epidural. Vaginal delivery. Delivered by Dr. Lin at [facility] in [place], [place]. No complications. 3--> 02/17/2015. Male, 7 lbs, Full-term. No anesthesia. Precipitous vaginal delivery. Delivered by Dr. Pak (sanitation inspector for Dr. Lin) at [facility] in [place], [place]. Care FER Calculator Estimated Delivery Date Method Current WG Current Estimate 11/08/20 Ultrasound #1 39w 4d Other Estimates 10/12/20 LMP (Uncertain) 43w 3d 11/07/20 Ultrasound #2 39w 5d Expected Delivery Route/Plan Vaginal Desires sterilization ( [facility] consent signed 08/17/2020) Specific Issues/Plans Obesity Asymptomatic bacteriuria at 10 weeks Headaches in at 16 weeks Desires sterilization Gastroesophagitis Gestational diabetes Anemia Vitals/I&O/Wt Last Vital Signs Temp 97.7 F 11/05/20 15:39 Pulse 187 H 11/05/20 18:11 BP 103/55 11/05/20 18:09 Pulse Ox 81 L 11/05/20 18:11 11/05/20 11/05/20 11/05/20 06:59 14:59 22:59 Intake Total 1000 / 1000 Balance 1000 / 1000 Physical Exam Const: COMMON NORMALS: no acute distress, alert and well nourished GENERAL APPEARANCE: well developed NUTRITIONAL APPEARANCE: obese ORIENTATION/CONSCIOUSNESS: Yes oriented to person, Yes oriented to place and Yes oriented to time Resp: COMMON NORMALS: normal respiratory effort and clear to auscultation bilaterally AUSCULTATION: clear to auscultation bilaterally Cardio: COMMON NORMALS: regular rate, regular rhythm, No gallops present (Cardio) and No rub (Cardio) RATE: regular rate RHYTHM: regular rhythm GI: COMMON NORMALS: Soft to palpation, non-tender, No hepatosplenomegaly present and no masses AUSCULTATION: Yes normoactive bowel sounds PALPATION: Yes Soft to palpation, Yes No hepatosplenomegaly present and No Hernia present Neuro: SENSORIUM/ORIENTATION: Yes alert, Yes oriented to person, Yes oriented to place and Yes oriented to time Psych: COMMON NORMALS: normal affect MOOD & AFFECT: Yes euthymic mood Urinary Catheter Management^: Carreon: Cath Placed During This Visit: yes Urinary Catheter Date of Insertion: 11/05/20 Urinary Catheter Time of Insertion: 18:28 Data : 11/05/20 16:45 A&P Assessment and plan (1) Non-reassuring heart tones complicating , antepartum: Approximately 1 hour after Cytotec placement, patient had a 12-minute heart rate deceleration. Following the deceleration, baby developed recurrent decelerations. These appeared to be variable in appearance, but contractions were not able to be identified. Because of the recurrent decelerations, and patient still being remote from delivery, recommended proceeding to a section. Risks of section were discussed with the patient and her partner including bleeding to the point of a blood transfusion, infection, and injury to intra-abdominal organs including bowel, bladder, blood vessels, nerves, and ureters. Questions were answered. Patient wishes to go ahead and proceed with a section. Status: Acute (2) Diabetes in : Patient had insulin controlled gestational diabetes. Sugars had been well controlled. However, patient had not brought in any other sugar readings for review further at least the last 2 weeks of the . Since she was 39 weeks gestation, recommendations were to proceed with induction of labor. She was presenting for Cytotec cervical ripening and induction this afternoon. Status: Acute Qualifiers: Diabetes in type: gestational Gestational diabetes mellitus control: insulin-controlled Trimester: third trimester Qualified Code(s): O24.414 - Gestational diabetes mellitus in , insulin controlled (3) Anemia affecting : Patient had been found to be anemic at her 28-week labs with H&H of 10.4/31.5. She had been started on iron twice a day. She is still anemic at this time, but has slightly improved since 28 weeks in the . Will check blood count following delivery. Status: Acute Qualifiers: Trimester: third trimester Qualified Code(s): O99.013 - Anemia complicating , third trimester (4) Obesity affecting : Status: Acute Qualifiers: Trimester: first trimester Qualified Code(s): O99.211 - Obesity complicating , first trimester (5) Contraception management: Patient had stated during the that she did not want any further children and wanted a sterilization performed. Permanence of sterilization was reviewed with her. Risks of surgery including failure rate and risk for tubal were discussed. Options of performing a partial salpingectomy or complete salpingectomy were discussed. The inability of a complete salpingectomy to be reversed was reviewed. Questions were answered. Patient wishes to proceed with complete removal of both fallopian tubes. Medicaid consent form had been signed on 08/17/2020. Status: Acute Qualifiers: Contraceptive encounter type: other general counseling and advice Qualified Code(s): Z30.09 - Encounter for other general counseling and advice on contraception Attestations Medical Necessity Statement*: Patient being induced for insulin controlled gestational diabetes at 39 weeks gestation. Coding Level of Care Code Acute Workforce Development Vice President for g Fwd Diagnoses Non-reassuring heart tones complicating , antepartum O36.8390 Diabetes in O24.414 Diabetes in type: gestational Gestational diabetes mellitus control: insulin-controlled Trimester: third trimester Anemia affecting O99.013 Trimester: third trimester Obesity affecting O99.211 Trimester: first trimester Contraception management Z30.09 Contraceptive encounter type: other general counseling and advice
[2020-11-05 21:42] LABS: Amphetamines Screen Urine Negative (Negative); Barbiturates Screen Urine Negative (Negative); Benzodiazepines Screen Urine Negative (Negative); Cocaine Screen Urine Negative (Negative); Opiate Screen Urine Negative (Negative); PCP Screen Urine Negative (Negative); THC Screen Urine Negative (Negative)
[2020-11-05] MEDS: dextrose 5%-lactated ringers 1,000 ML 125 ML IV (23:30)
[2020-11-06] VITALS (8 sets, daily range): BP systolic 104–125; BP diastolic 67–73; PULSE 77–90; RESP 16–17; TEMP 36.4–36.8; O2SAT 97–99
[2020-11-06] MEDS: ketorolac 30 mg/mL INJ IVP (00:21)
[2020-11-06] MEDS: sodium chloride 0.9% 500 ML 999 ML IV (00:33)
[2020-11-06] MEDS: ibuprofen 800 mg tablet PO ×3 (08:43→20:30)
[2020-11-06] MEDS: docusate sodium 100 mg Capsule PO ×2 (08:43→20:30)
[2020-11-06] MEDS: dextrose 5%-lactated ringers 1,000 ML 125 ML IV (08:43)
[2020-11-06 10:00] LABS: Hematocrit 29.2 % (37.0-47.0); Hemoglobin 9.6 g/dL (11.5-15.3); Mean Corpuscular HGB Conc 32.9 g/dL (30.0-36.0); Mean Corpuscular Volume 85.1 fL (81-99); Mean Platelet Volume 10.6 fL (7.4-10.4); Platelet Count 205 10^3/cmm (130-400); Red Blood Count 3.43 10^6/uL (4.1-5.3)
--- NOTE | 2020-11-06 12:50 | PM.PN ---
Subjective Subjective: Interval history: Denies any problems or concerns. Reports pain is been well controlled. Denies any lightheadedness or dizziness with ambulation. Denies any shortness of breath or chest pains. Reports tolerating a regular diet without nausea or vomiting. Denies problems with urination. Reports passing flatus and having bowel movements. She is breast-feeding. Vitals/I&O/Wt Last Vital Signs Temp 97.9 F 11/06/20 10:00 Pulse 82 11/06/20 10:00 Resp 16 11/06/20 10:00 BP 118/73 11/06/20 10:00 Pulse Ox 98 11/06/20 10:00 11/05/20 11/06/20 11/06/20 22:59 06:59 14:59 Intake Total 2600 / 2600 631.25 / 3231.25 1029.167 / 1029.167 Output Total 700 / 700 310 / 1010 800 / 800 Balance 1900 / 1900 321.25 / 2221.25 229.167 / 229.167 Weight last 48 hrs Weight 216 lb Physical Exam Const: COMMON NORMALS: no acute distress, average body habitus, alert and well nourished GENERAL APPEARANCE: well developed ORIENTATION/CONSCIOUSNESS: Yes oriented to person, Yes oriented to place and Yes oriented to time Resp: COMMON NORMALS: normal respiratory effort and clear to auscultation bilaterally AUSCULTATION: clear to auscultation bilaterally Cardio: COMMON NORMALS: regular rate, regular rhythm, No gallops present (Cardio) and No rub (Cardio) RATE: regular rate RHYTHM: regular rhythm GI: COMMON NORMALS: Soft to palpation, No hepatosplenomegaly present and no masses (Except tender uterus.) INSPECTION: Yes incision (Clean, dry, intact with Steri-Strips present.) AUSCULTATION: Yes normoactive bowel sounds PALPATION: Yes Soft to palpation, Yes Tenderness to palpation present (GI) (Lower abdominal tenderness), Yes No hepatosplenomegaly present and No Hernia present : EXTERNAL FEMALE EXAM: No Hernia present Extremity: COMMON NORMALS: no calf tenderness NARRATIVE EXTREMITY EXAM: 1+ lower extremity edema. Neuro: SENSORIUM/ORIENTATION: Yes alert, Yes oriented to person, Yes oriented to place and Yes oriented to time Psych: COMMON NORMALS: normal affect MOOD & AFFECT: Yes euthymic mood Urinary Catheter Management^: Carreon: Cath Placed During This Visit: yes, but has since been removed by the nurse Reason for Continuing Indwelling Catheter: Decision to DC Catheter Urinary Catheter Date of Insertion: 11/05/20 Urinary Catheter Time of Insertion: 18:28 Date Urinary Catheter Removed: 11/06/20 Time Urinary Catheter Discontinued: 10:05 Data : 11/06/20 09:15 A&P Assessment and plan (1) Non-reassuring status, delivered, current hospitalization: Postoperative day 1, status post primary section due to nonreassuring heart tones and bilateral sterilization. Patient is doing well at this time. Increase activities as tolerated. May shower. Diet has been advanced. Pain is currently controlled with Duramorph. Discussed with her that she will be hurting more typically as the day progresses. Use of oral pain medication discussed with her. Plan for discharge to home tomorrow. Status: Acute (2) Gestational diabetes mellitus, delivered, current hospitalization: Patient had gestational diabetes. At this point sugars are no longer being checked. Plan would be for her to have a 2-hour glucose tolerance test at approximately 6 weeks . Status: Acute (3) Anemia during , delivered, current hospitalization: Hemoglobin 9.6 this morning. This is approximately 1 g down from where she was at before delivery. This is expected drop based upon blood loss. She is not symptomatic at this time. Recommend continuing oral iron after discharge from the hospital. Status: Acute Attestations Medical Necessity Statement*: Patient is less than 24 hours status post primary section. Coding Level of Care Code Acute Code Enforcement Officer for Chg Fwd Diagnoses Non-reassuring status, delivered, current hospitalization O75.89 Gestational diabetes mellitus, delivered, current hospitalization O24.429 Anemia during , delivered, current hospitalization O99.02
--- NOTE | 2020-11-06 13:23 | ANE.PACU2 ---
Inpatient post-anesthesia follow up: Airway intact: Yes Vital signs: Temperature 97.9 F Pulse Rate 82 Respiratory Rate 16 Blood Pressure 118/73 Pulse Oximetry 98 Oxygen Delivery Me thod Room Air Oxygen Flow Rate Fraction of Inspir ed Oxygen Hydration adequate: Yes Nausea and vomiting: No Pain level: 1 Mental status: Baseline Additional Comments: no residual numbness/weaknses of legs, up and walking, urinating without mathews, no headaches, no s/s of infection at neuraxial site, but significant bruising present. Mild tenderness to palpation
[2020-11-07 04:30] VITALS: BP 117/76; PULSE 79; RESP 16; TEMP 36.8; O2SAT 98
[2020-11-07] MEDS: ibuprofen 800 mg tablet PO (09:18)
[2020-11-07] MEDS: docusate sodium 100 mg Capsule PO (09:18)
[2020-11-07 09:19] VITALS: BP 137/86; PULSE 101; RESP 16; TEMP 36.4; O2SAT 97
--- NOTE | 2020-11-07 09:32 | PC.NURSE ---
Patient reports not having used her IS since being brought to the room. Patient educated on the importance of using it and handed IS. Patient completed 10 times and instructed that she would benefit from doing it 10 times every hour she is awake. Patient verbalized understanding.
--- NOTE | 2020-11-07 10:51 | PM.DCS ---
Discharge Providers Date of Admission: 11/05/20 15:05 Date of Discharge: November 07, 2020 Attending Provider at Admission: Ant Pak MD Attending Provider at Discharge: Pre-op Diagnosis: 1. Nonreassuring heart tones in third trimester, 2. at 39-4/7 weeks gestation, 3. Insulin controlled gestational diabetes in third trimester, 4. Anemia in in third trimester, 5. Obesity in in third trimester, 6. Undesired fertility Post-op Diagnosis: 1. Nonreassuring heart tones in third trimester, 2. at 39-4/7 weeks gestation, 3. Meconium in fluid, 4. Insulin controlled gestational diabetes in third trimester, 5. Anemia in in third trimester, 6. Obesity in in third trimester, 7. Undesired fertility, 8. Viable female infant Procedure Done: Primary low transverse section, Tubal ligation (complete salpingectomy) Specimens removed/disposition: Right and left fallopian tubes Date of procedure: November 05, 2020 Findings: 1. Viable female infant weighing 6 lbs 7 oz (2910 g) with a length of 18-3/4 inches and Apgars of 8 at 1 minute and 9 at 5 minutes. 2. Meconium fluid. 3. Normal-appearing uterus, tubes, and ovaries. Brief History: Patient is a 30-year-old female 4, para 3-0-0-3 with an LMP of 01/06/2020 and an EDC of 11/08/2020 based on a 7-week ultrasound, which placed her at 39-4/7 weeks gestation today. She presented to labor and delivery for induction of labor due to insulin controlled gestational diabetes at 39 weeks gestation. She received 1 dose of Cytotec and approximately 1 hour later she had a 13-minute prolonged deceleration which responded to position changes, fluid bolus, and oxygen. Following the deceleration she developed recurrent, what appeared to be variable decelerations which were not resolving. Since she was still distant from delivery, decision was made to proceed to a primary section. Patient had also stated during the that she did not want any further children and wanted to proceed with a sterilization. At this point she is still adamant that she wants her tubes completely removed. Medicaid consent form had been signed on 08/17/2020. HOSPITAL COURSE: She underwent an uncomplicated delivery on 11/05/2020--please refer to operative report for details. She did well on day 0 and was ambulating well, tolerating regular diet, voiding freely, passing flatus. She was breast-feeding without difficulty and bonding well with her daughter. Pain was well-controlled with by mouth pain medication. She denied nausea, vomiting, fever, chills, shortness of breath, leg pain. She had moderate vaginal bleeding. On day # 1 she continued to do well with stable vital signs and stable hemoglobin at 9.6. She continued to do well on postoperative day #2 and had stable vital signs and incision appeared clean dry and intact. She was discharged home on day 2 in a stable condition, as she desired early discharge. Warning signs for endometritis, wound infection, mastitis, DVT/PE were reviewed with her. Post delivery activity restrictions were also reviewed with her at all her questions were answered to her satisfaction. Has had sterilization for contraception. EXAM AT DISCHARGE: Gen.: No acute distress Heart: S1-S2 heard, regular rate and rhythm Lungs: Clear to auscultation bilaterally Abdomen: Soft, fundus firm below umbilicus, tenderness around incision. Incision: Clean dry and intact with Steri-Strips. Legs: No calf tenderness, trace bilateral pitting pedal edema. CONDITION AT DISCHARGE: Stable This documentation was created by [employer] geology technician software (known for inherent geology technician error). Every effort was made to assure accuracy of geology technician. Any obvious errors or omissions should be clarified with the author of the document. Diagnoses at Discharge Discharge Diagnosis (1) Non-reassuring status, delivered, current hospitalization: Status: Acute (2) Gestational diabetes mellitus, delivered, current hospitalization: Status: Acute (3) Anemia during , delivered, current hospitalization: Status: Acute Reason for Visit Reason for Visit: induction Physical Exam Urinary Catheter Management^: Carreon: Cath Placed During This Visit: yes, but has since been removed by the nurse Reason for Continuing Indwelling Catheter: Decision to DC Catheter Urinary Catheter Date of Insertion: 11/05/20 Urinary Catheter Time of Insertion: 18:28 Date Urinary Catheter Removed: 11/06/20 Time Urinary Catheter Discontinued: 10:05 Discharge Data Data Completed and Pending: Pending at discharge Category Date Time Status Pathology: Surgic al [PTH] Routine Pth 11/05/20 22:08 Received Vitals: Last Vital Signs Temp 97.6 F 11/07/20 09:19 Pulse 101 H 11/07/20 09:19 Resp 16 11/07/20 09:19 BP 137/86 11/07/20 09:19 Pulse Ox 97 11/07/20 09:19 Discharge Plan Discharge Patient Disposition: Home Condition: Stable Prescriptions: New hydrocodone-acetaminophen 5-325 mg tablet 1 tab PO Q6H Qty: 25 RF: 0 ibuprofen 800 mg tablet 800 mg PO Q8H Qty: 30 RF: 0 docusate sodium 100 mg Capsule 100 mg PO BID PRN (Reason: constipation) Qty: 30 RF: 0 Discontinued prenat.vits,kenneth,iya-qmnv-umtij Tablet 1 tab PO DAILY RF: 0 insulin lispro [Humalog U-100 Insulin] 100 unit/mL solution 2 unit SUBCUT .COMPLEX RF: 0 ferrous sulfate 325 mg (65 mg iron) tablet 325 mg PO BID Qty: 60 RF: 4 No Action (DME) Accutrend Glucose test strips Strip See Rx Instructions .ROUTE .MEDSUPPLY Qty: 120 RF: 4 (DME) blood-glucose meter [Blood Glucose Monitoring] Kit See Rx Instructions .ROUTE .MEDSUPPLY Qty: 1 RF: 0 (DME) lancets [BD Ultra Fine Lancets] 33 gauge misc See Rx Instructions .ROUTE .MEDSUPPLY Qty: 100 RF: 3 Discharge Orders: Discharge Order (Routine); Ordered 11/07/20 Ordered By: Jing Oneil Referrals: Ant aPk MD [Physician] - (2-week and 6-week with Dr. Pak) Patient Instructions: Vitamins (By mouth), Pre-eclampsia and Eclampsia (DC), Bleeding (DC), OB [facility], OB Discharge Report, OB Food/Drug Interaction Guide, OB Care at Home, Opioid Safety Activity Restrictions/Additional Instructions: Pelvic rest for 6 weeks, no heavy lifting for 6 weeks Discharge Attestations Time Spent in Discharge Care*: greater than 30 min Quality Metrics Clinical Quality Measures During this hospital stay, did patient experience: None Coding Level of Care Code Acute Chg FW DC note Diagnoses Non-reassuring status, delivered, current hospitalization O75.89 Gestational diabetes mellitus, delivered, current hospitalization O24.429 Anemia during , delivered, current hospitalization O99.02
[2020-11-07 12:09] VITALS: BP 137/86; PULSE 101; RESP 16; TEMP 36.4; O2SAT 97
== END 2020-11-07 12:01 | disposition home or self-care (01) | DRG 785 ==
PROVIDERS: Admitting Provider Obstetrics & Gynecology; Visit Provider Obstetrics & Gynecology
PROC: 10D00Z1 Extraction of Products of Conception, Low, Open Approach (ICD-10-PCS; CPT 59514; principal; 2020-11-05 18:00)
DX: O76 Abnormality in fetal heart rate and rhythm complicating labor and delivery (principal); O99.214 Obesity complicating childbirth; O24.424 Gestational diabetes mellitus in childbirth, insulin controlled; O99.02 Anemia complicating childbirth; D64.9 Anemia, unspecified; O77.0 Labor and delivery complicated by meconium in amniotic fluid; Z3A.39 39 weeks gestation of pregnancy; Z37.0 Single live birth; Z30.2 Encounter for sterilization
CPT/HCPCS: 36415; 51702; 58611; 59025; 59409; 80306; 85025; 85027; 88302; 96372; 96374; 96375; 98960; 99211; J0330; J0690; J1885; J2274; J2704; J2765; J3105; J3490; J7030; J7040

== ENCOUNTER → 2020-12-18 08:50 | Outpatient (BNVA) | payer MEDICAID, SELFPAY | PROVIDERS: Visit Provider Nurse Practitioner Women's Health | DX: Z39.2 Encounter for routine postpartum follow-up (principal); O24.419 Gestational diabetes mellitus in pregnancy, unspecified control | CPT/HCPCS: 82947 ==

== ENCOUNTER → 2022-12-21 08:50 | Outpatient (BNVA) | payer MEDICAID, SELFPAY | PROVIDERS: Visit Provider Obstetrics & Gynecology | DX: N93.9 Abnormal uterine and vaginal bleeding, unspecified (principal) | CPT/HCPCS: 81025; 87624 ==

== ENCOUNTER 2023-12-10 18:54 | Emergency (ER) | payer MEDICAID, SELFPAY ==
[2023-12-10 19:02] VITALS: BP 124/71; PULSE 94; RESP 17; TEMP 36.8; O2SAT 97; BMI 31.8
--- NOTE | 2023-12-10 19:05 | XRR_ITS ---
PROCEDURE INFORMATION: Exam: XR Left Ankle Exam date and time: 12/10/2023 7:12 PM Age: 33 years old Clinical indication: Injury or trauma; Fall; Other: Rolled lt ankle; Patient HX: Lt ankle pain after rolling Other procedure information: stieda TECHNIQUE: Imaging protocol: Radiologic exam of the left ankle. Views: 3 or more views. COMPARISON: CR XR ankle LT min 3V* [id number] 11/19/2019 2:18 PM FINDINGS: Bones/joints: Linear lucency base, proximal aspect 5th metatarsal appears increased, changed compared to 09/24/2019, 11/19/2019, compatible with new or recurrent fracture. No additional new appearing displaced fracture nor dislocation seen. Prominent ossicle and/or prominence Stieda process posterior talus. Correlate for posterior ankle impingement (TIFF) or other process. Evidence of spurring anterior malleolus, anterior distal tibia, tibiotalar relationship. Soft tissues: No metallic foreign body seen. Soft tissue swelling. XR/XR ankle LT min 3V* [id number] IMPRESSION: Linear lucency base, proximal aspect 5th metatarsal appears increased, changed compared to 09/24/2019, 11/19/2019, compatible with new or recurrent fracture. Soft tissue swelling.
--- NOTE | 2023-12-10 19:17 | W.ED.EXTPRO ---
Documented by User: ROSALES Gomez 12/10/23 20:44 HPI - Extremity Problem General: Chief complaint: Extremity Injury, Lower Stated complaint: Left foot pain Time Seen by Provider: 12/10/23 19:15 History of Present Illness: 33-year-old female comes in today for complaints of left foot injury. Patient reports that she stepped into a hole earlier today. Since then she has had pain with weightbearing that radiates down the lateral aspect of her left foot. Review of Systems General: Reports: 10 or more systems reviewed and unremarkable except in HPI and below PFSH ED PFSH: Medical History Intermittent asthma with acute exacerbation Surgical History History of placement of ear tubes S/P primary low transverse (11/05/20) With sterilization. DX: NRFHT. Performed by Dr. Pak at [facility] in [place], [place]. S/P tubal ligation (11/05/20) Complete bilateral salpingectomy performed at time of . Performed by Dr. Pak at [facility] in [place], [place]. Family History Denies family history of Colon cancer Ovarian cancer Diabetes Clotting disorder Breast cancer Bleeding disorder Hypertension Uterine cancer Thyroid disease Stroke Social History Substance/Drug Use: never Physical Exam Const: COMMON NORMALS: alert HENMT: COMMON NORMALS: normocephalic HEAD & SCALP: normocephalic Neck/C-Spine: COMMON NORMALS: full ROM Resp: COMMON NORMALS: normal respiratory effort Cardio: COMMON NORMALS: regular rate RATE: regular rate Back/Pelvis: COMMON NORMALS: thoracic and lumbar spine normal to inspection Extremity: COMMON NORMALS: full ROM Neuro: SENSORIUM/ORIENTATION: Yes alert Skin: COMMON NORMALS: turgor normal GENERAL SKIN EXAM: turgor normal Course Vital Signs: Vital signs: Vital Signs Temperature 98.3 F 12/10/23 19:02 Pulse Rate 94 12/10/23 19:02 Respiratory Rate 17 12/10/23 19:02 Blood Pressure 124/71 12/10/23 19:02 Pulse Oximetry 97 12/10/23 19:02 Oxygen Delivery Me thod Room Air 12/10/23 19:02 MDM - Extremity (Nontraumatic) Medical Decision Making 33-year-old female comes in today with injury to the left foot. On exam patient has lateral foot tenderness. Mild swelling. Differential diagnosis includes fracture, sprain, contusion. X-ray noted a fracture to the proximal shaft of the fifth metatarsal. Reviewed the x-ray with Dr. Neves, attending ER physician, he agreed with treatment plan for splinting and following up with foot and ankle surgeon. Discussed with patient who also agreed with plan. Case management was requested for follow-up appointment. Patient will return to ER as needed. Lab Data Radiology Impressions Ankle X-Ray 12/10/23 19:05 IMPRESSION: Linear lucency base, proximal aspect 5th metatarsal appears increased, changed compared to 09/24/2019, 11/19/2019, compatible with new or recurrent fracture. Soft tissue swelling. Foot X-Ray 12/10/23 19:23 IMPRESSION: Comminuted fracture base of 5th metatarsal. Please see body of report. XR interpretation done by ED provider, pending radiology final review Discharge Plan Discharge Patient Disposition: Home Clinical Impression: Metatarsal bone fracture Qualifiers: Encounter type: initial encounter Metatarsal bone: fifth Fracture type: closed Fracture alignment: displaced Laterality: left Qualified Code(s): S92.352A - Displaced fracture of fifth metatarsal bone, left foot, initial encounter for closed fracture Condition: Stable Prescriptions: New hydrocodone-acetaminophen 5-325 mg tablet 1 tab PO Q6H PRN (Reason: pain) Qty: 10 0RF No Action ibuprofen 800 mg tablet 800 mg PO Q8H Qty: 30 0RF Discharge Orders: Discharge ED (Routine); Ordered 12/10/23 Ordered By: Grayson Riley Referrals: Fabrice Young DPM [Physician] - Discharge Diet: Usual diet Discharge Activity: Increase activity as tolerated Patient Instructions: Splint Care (ED), Opioid Safety, Pain Management Activity Restrictions/Additional Instructions: Keep splint clean and dry. Follow-up with foot and ankle surgeon for further treatment and evaluation. Case management will hopefully call you for the follow-up appointment. Return to ED for new concerns. Coding Level of Care Code ED Top Polisher for Chg Fwd Documented by User: Jose R Neves DO 12/11/23 01:43 HPI - Extremity Problem General: Chief complaint: Extremity Injury, Lower Stated complaint: Left foot pain Time Seen by Provider: 12/10/23 19:15 PFSH ED PFSH: Medical History Intermittent asthma with acute exacerbation Surgical History History of placement of ear tubes S/P primary low transverse (11/05/20) With sterilization. DX: NRFHT. Performed by Dr. Pak at [facility] in [place], [place]. S/P tubal ligation (11/05/20) Complete bilateral salpingectomy performed at time of . Performed by Dr. Pak at [facility] in [place], [place]. Family History Denies family history of Colon cancer Ovarian cancer Diabetes Clotting disorder Breast cancer Bleeding disorder Hypertension Uterine cancer Thyroid disease Stroke Social History Substance/Drug Use: never Course Vital Signs: Vital signs: Vital Signs Temperature 98.3 F 12/10/23 19:02 Pulse Rate 94 12/10/23 19:02 Respiratory Rate 17 12/10/23 19:02 Blood Pressure 124/71 12/10/23 19:02 Pulse Oximetry 97 12/10/23 19:02 Oxygen Delivery Me thod Room Air 12/10/23 19:02 MDM - Extremity (Nontraumatic) Medical Decision Making 33-year-old female comes in today with injury to the left foot. On exam patient has lateral foot tenderness. Mild swelling. Differential diagnosis includes fracture, sprain, contusion. X-ray noted a fracture to the proximal shaft of the fifth metatarsal. Reviewed the x-ray with Dr. Neves, attending ER physician, he agreed with treatment plan for splinting and following up with foot and ankle surgeon. Discussed with patient who also agreed with plan. Case management was requested for follow-up appointment. Patient will return to ER as needed. This patient was originally seen by ROSALES Shah.? I agree with his history, evaluation, and treatment. Lab Data Radiology Impressions Ankle X-Ray 12/10/23 19:05 IMPRESSION: Linear lucency base, proximal aspect 5th metatarsal appears increased, changed compared to 09/24/2019, 11/19/2019, compatible with new or recurrent fracture. Soft tissue swelling. Foot X-Ray 12/10/23 19:23 IMPRESSION: Comminuted fracture base of 5th metatarsal. Please see body of report. Discharge Plan Discharge Patient Disposition: Home Clinical Impression: Metatarsal bone fracture Qualifiers: Encounter type: initial encounter Metatarsal bone: fifth Fracture type: closed Fracture alignment: displaced Laterality: left Qualified Code(s): S92.352A - Displaced fracture of fifth metatarsal bone, left foot, initial encounter for closed fracture Condition: Stable Prescriptions: New hydrocodone-acetaminophen 5-325 mg tablet 1 tab PO Q6H PRN (Reason: pain) Qty: 10 0RF No Action ibuprofen 800 mg tablet 800 mg PO Q8H Qty: 30 0RF Discharge Orders: Discharge ED (Routine); Ordered 12/10/23 Ordered By: Grayson Riley Referrals: Fabrice Young DPM [Physician] - Discharge Diet: Usual diet Discharge Activity: Increase activity as tolerated Patient Instructions: Splint Care (ED), Opioid Safety, Pain Management Activity Restrictions/Additional Instructions: Keep splint clean and dry. Follow-up with foot and ankle surgeon for further treatment and evaluation. Case management will hopefully call you for the follow-up appointment. Return to ED for new concerns. Coding Level of Care Code ED Top Polisher for Roney Chahal
--- NOTE | 2023-12-10 19:23 | XRR_ITS ---
PROCEDURE INFORMATION: Exam: XR Left Foot Exam date and time: 12/10/2023 7:31 PM Age: 33 years old Clinical indication: Injury or trauma; Fall; Blunt trauma; Left; Patient HX: Patient tripped stepping into small hole in ground. C/O pain to lateral side of foot. TECHNIQUE: Imaging protocol: Radiologic exam of the left foot. Views: 3 or more views. COMPARISON: CR (LOW EXM, ) 12/10/2023 7:12 PM FINDINGS: Bones/joints: Linear lucencies mostly projecting transversely base of 5th metatarsal compatible with comminuted fracture which appears unchanged compared images of ankle from 09/24/2019 suggesting acute fracture, possibly acute or recurrent fracture superimposed on chronic changes. No additional new appearing displaced fracture nor dislocation seen. Degenerative changes ankle. Prominent Stieda process or ossicle posterior talus. Correlate for posterior ankle impingement or other process. Soft tissues: No metallic foreign body seen. XR/XR foot LT min 3V* [id number] IMPRESSION: Comminuted fracture base of 5th metatarsal. Please see body of report.
[2023-12-10] MEDS: HYDROcodone-acetaminophen 5-325 mg Tablet 1 TAB PO (20:20)
--- NOTE | 2023-12-11 08:05 | DCPLANNER ---
messaged podiatry for er f/u
== END 2023-12-10 20:55 | disposition home or self-care (01) ==
PROVIDERS: Emergency Provider Nurse Practitioner Family
DX: S92.352A Displaced fracture of fifth metatarsal bone, left foot, initial encounter for closed fracture (principal); W18.42XA Slipping, tripping and stumbling without falling due to stepping into hole or opening, initial encounter
CPT/HCPCS: 29515; 73610; 73630; 99283; E0114

== ENCOUNTER → 2023-12-19 11:44 | Outpatient (BNVA) | payer MEDICAID, SELFPAY | PROVIDERS: Visit Provider Podiatrist Foot & Ankle Surgery | DX: S92.352A Displaced fracture of fifth metatarsal bone, left foot, initial encounter for closed fracture; W10.9XXA Fall (on) (from) unspecified stairs and steps, initial encounter | CPT/HCPCS: 73630 ==

== ENCOUNTER 2023-12-24 17:07 | Observation (INO) | payer MEDICAID, SELFPAY ==
[2023-12-24] VITALS (7 sets, daily range): BP systolic 113–127; BP diastolic 73–74; PULSE 60–64; RESP 16–22; TEMP 37–37.1; O2SAT 98–100
--- NOTE | 2023-12-24 17:15 | ECG_ITS ---
[facility] Test Date: 2023-12-24 Pat Name: Chetna Mireles Department: Room: Gender: Female Telesales Advisor: : 1990 Requested By: Mackenzie Lawrence Order Number: [id number] Lakshmi MD: Jon Alvarez M.D. Measurements Intervals [place] Rate: 74 P: 62 NV: 132 QRS: 52 QRSD: 84 T: 40 QT: 368 QTc: 409 Interpretive Statements SINUS RHYTHM WITH MARKED SINUS ARRHYTHMIA No previous ECG available for comparison Electronically Signed On 12-24-2023 21:06:57 CDT by Jon Alvarez M.D. [id number]
--- NOTE | 2023-12-24 17:16 | XRR_ITS ---
PROCEDURE INFORMATION: Exam: XR Chest Exam date and time: 12/24/2023 5:44 PM Age: 33 years old Clinical indication: Chest wall pain; Additional info: Chest pain TECHNIQUE: Imaging protocol: Radiologic exam of the chest. Views: 1 view. COMPARISON: CR XR chest 1V [id number] 03/28/2018 10:44 PM FINDINGS: Lungs: No pulmonary infiltrate or consolidation. Pulmonary vascularity is within normal limits. Pleural spaces: No pleural effusion or pneumothorax. Heart/Mediastinum: Cardiomediastinal contours appear unremarkable. No cardiomegaly. Bones/joints: Mild thoracolumbar scoliosis. Visualized osseous structures show no acute abnormality. Other findings: No acute change from prior exam. XR/XR chest 1V portable [id number] IMPRESSION: No acute cardiopulmonary abnormality.
--- NOTE | 2023-12-24 17:17 | USR_ITS ---
PROCEDURE INFORMATION: Exam: US Abdomen, Limited; Right Upper Quadrant Exam date and time: 12/24/2023 6:01 PM Age: 33 years old Clinical indication: Abdominal pain; Epigastric; Additional info: Right upper quadrant pain, concern for cholecystitis TECHNIQUE: Imaging protocol: Real time ultrasound of the abdomen with image documentation. Limited exam focused on the right upper quadrant. COMPARISON: US OB BPP w [facility] 11/02/2020 8:43 AM FINDINGS: Liver: Liver measures 14.9 cm in length and appears unremarkable in echotexture. No focal abnormality. Gallbladder: Gallbladder wall thickening noted, measuring up to 7 mm. No pericholecystic fluid collection is seen. In the decubitus position, a few very tiny echogenic foci are seen appearing mobile, which could indicate tiny stones or small amount debris/sludge. Biliary ducts: Normal. No stones. No dilation. Pancreas: Midline images of the pancreas show no focal abnormality. Right kidney: Right kidney measures 12.2 x 4.2 x 5.4 cm. No findings of hydronephrosis or obstruction. Renal cortex measures 1.2 cm. No focal abnormality. Renal flow is seen. Aorta: Mid abdominal aorta measures 1.3 cm. Abdominal aorta appears unremarkable. Inferior vena cava: IVC measures 2.3 cm and appears unremarkable. Portal venous: Hepatopetal portal venous flow is seen. Intraperitoneal space: No free fluid or ascites is seen in the right upper abdomen. US/US gall bladder [id number] IMPRESSION: 1. Thickened gallbladder wall measuring up to 7 mm, which can be seen with cholecystitis of acute or chronic nature. 2. Several tiny echogenic foci are seen within the gallbladder on the decubitus views. This could represent tiny stones or small amount debris/sludge. 3. No biliary ductal dilatation.
--- NOTE | 2023-12-24 17:57 | W.ED.CHESTPA ---
HPI - Chest Pain General: Chief Complaint: Chest Pain Stated Complaint: CHEST PAIN Time Seen by Provider: 12/24/23 17:11 History of Present Illness: 33-year-old female who presents emergency room with chest and epigastric pain. This started few hours ago. She had some nausea. No vomiting. She appears anxious. She says her hands felt tingling. No fever. No cough. Review of Systems Narrative: Constitutional symptoms: Negative except as documented in HPI. Skin symptoms: Negative except as documented in HPI. Eye symptoms: Negative except as documented in HPI. ENMT symptoms: Negative except as documented in HPI. Respiratory symptoms: Negative except as documented in HPI. Cardiovascular symptoms: Negative except as documented in HPI. Gastrointestinal symptoms: Negative except as documented in HPI. Genitourinary symptoms: Negative except as documented in HPI. Musculoskeletal symptoms: Negative except as documented in HPI. Neurologic symptoms: Negative except as documented in HPI. Psychiatric symptoms: Negative except as documented in HPI. Endocrine symptoms: Negative except as documented in HPI. [facility] ED PFSH: Medical History Intermittent asthma with acute exacerbation Surgical History History of placement of ear tubes S/P primary low transverse (11/05/20) With sterilization. DX: NRFHT. Performed by Dr. Pak at [facility] in [place], [place]. S/P tubal ligation (11/05/20) Complete bilateral salpingectomy performed at time of . Performed by Dr. Pak at [facility] in [place], [place]. Family History Denies family history of Colon cancer Ovarian cancer Diabetes Clotting disorder Breast cancer Bleeding disorder Hypertension Uterine cancer Thyroid disease Stroke Social History Smoking and tobacco/nicotine status: tobacco/nicotine user, details unknown Substance/Drug Use: never Physical Exam Narrative: EXAM NARRATIVE: General: Alert, no acute distress. Skin: Warm, dry. Head: Normocephalic, atraumatic. Neck: Supple, trachea midline. Eye: Extraocular movements are intact. Ears, nose, mouth and throat: mucosa moist. Cardiovascular: Regular, Normal peripheral perfusion. Respiratory: Lungs are clear to auscultation, respirations are non-labored, breath sounds are equal, Symmetrical chest wall expansion. Gastrointestinal: Soft, epigastric and right upper quadrant tenderness to palpation, Non distended Musculoskeletal: Normal ROM, no deformity. Neurological: Alert and oriented, No focal neurological deficit observed. Psychiatric: Cooperative, patient appears somewhat anxious Course Vital Signs: Vital signs: Vital Signs Temperature 98.6 F 12/24/23 17:21 Pulse Rate 64 12/24/23 18:08 Respiratory Rate 16 12/24/23 20:18 Blood Pressure 113/74 12/24/23 17:18 Pulse Oximetry 100 12/24/23 20:18 Oxygen Delivery Me thod Room Air 12/24/23 18:08 MDM - Chest Pain Medical Decision Making Medical decision making: Differential diagnosis including but not limited to and based on the above HPI, review of systems and physical exam: In this patient with epigastric and chest pain more concern for cholecystitis or intra-abdominal pathology as she is tender in her right upper quadrant. But we will rule out any chest and heart pathologies. Orders placed to evaluate differential diagnosis based on the above differential, HPI and physical exam EKG: Time 1715. Rate 74. Normal sinus rhythm, No ST-T changes, no ectopy, normal AR & QRS intervals, This was reviewed and interpreted by myself the ER physician at 1720. Lab Review: Laboratory results were reviewed and interpreted by myself the emergency room physician. Patient has some leukocytosis with a white count of 12. Also her CRP is quite elevated around 40. No renal failure but does look a little dehydrated with a BUN/creatinine of 15 and 0.5. No anemia. Liver enzymes are normal. No signs of obstruction. D-dimer was positive so CTA of the chest was done. Cardiac workup was negative. Ultrasound gallbladder: Gallbladder wall thickening with some sludge but no obvious stones. Given exam and labs I think she has acute cholecystitis. This was reviewed and interpreted by myself the emergency room physician. I also reviewed the radiology report. CTA of the chest with PE protocol: No evidence of PE. This was reviewed and interpreted by myself the emergency room physician. I also reviewed the radiology report. I reviewed the patient's medical record. Reexamination: Patient when I went back to see her was beginning to have severe right upper quadrant pain again. I ordered some pain medications. No altered mental status. No increased work of breathing. I discussed the plan and she expresses understanding Consultation: I spoke with Dr. Duval who recommends Zosyn and admission. Assessment and plan: Acute acalculous cholecystitis Urinary tract infection Dehydration ?Fluids, Rocephin originally ordered for UTI but I have changed her to Zosyn. -I discussed the patient with the general surgeon on-call who is admitting the patient. - Discussed findings and plan with patient. Answered any questions. - All laboratory values were reviewed and interpreted personally by myself, the ER physician - All imaging was reviewed and interpreted personally by myself, the ER physician. - Evaluation and treatment of this problem were appropriate in the emergency setting Lab Data 12/24/23 17:55 12/24/23 17:55 Radiology Impressions Chest X-Ray 12/24/23 17:16 IMPRESSION: No acute cardiopulmonary abnormality. Gallbladder Ultrasound 12/24/23 17:17 IMPRESSION: 1. Thickened gallbladder wall measuring up to 7 mm, which can be seen with cholecystitis of acute or chronic nature. 2. Several tiny echogenic foci are seen within the gallbladder on the decubitus views. This could represent tiny stones or small amount debris/sludge. 3. No biliary ductal dilatation. Chest CTA 12/24/23 18:34 IMPRESSION: 1. No CT findings of pulmonary embolus. 2. Mild nonspecific posterior pleural thickening, right slightly greater than left, with 2 subcentimeter subpleural nodules versus small focal nodular pleural thickening as noted above. Consider inflammation or pleurisy though this may reflect chronic change as well. 3. No infiltrate or effusion or acute findings otherwise. Laboratory Results WBC 12.00 10^3/uL (3.29-11.43) H 12/24/23 17:55 RBC 4.35 10^6/uL (3.85-5.65) 12/24/23 17:55 Hgb 12.30 g/dL (11.27-16.99) 12/24/23 17:55 Hct 36.8 % (36-47) 12/24/23 17:55 MCV 84.6 fl (85-98) L 12/24/23 17:55 MCH 28.3 pg (27-33) 12/24/23 17:55 MCHC 33.4 g/dL (30-55) 12/24/23 17:55 RDW 13.2 % (12.1-15.1) 12/24/23 17:55 Plt Count 250 10^3/cmm (157-399) 12/24/23 17:55 MPV 10.7 fL (7.4-10.4) H 12/24/23 17:55 Neut % (Auto) 87.6 % 12/24/23 17:55 Lymph % (Auto) 8.0 % 12/24/23 17:55 Davis % (Auto) 3.7 % 12/24/23 17:55 Eos % (Auto) 0.1 % 12/24/23 17:55 Baso % (Auto) 0.2 % 12/24/23 17:55 Neut # (Auto) 10.52 10^3/uL (1.8-7.7) H 12/24/23 17:55 Lymph # (Auto) 1.0 10^3/uL (0.8-4.8) 12/24/23 17:55 Davis # (Auto) 0.4 10^3/uL (0.2-0.9) 12/24/23 17:55 Eos # (Auto) 0.0 10^3/uL (0.0-0.8) 12/24/23 17:55 Baso # (Auto) 0.0 10^3/uL (0.0-0.1) 12/24/23 17:55 Nucleated RBC % (auto) 0 % 12/24/23 17:55 Nucleated RBCs # 0.0 /100WBC 12/24/23 17:55 D-Dimer 1.51 ug/mLFEU (0-0.59) H 12/24/23 17:55 Sodium 137 mmol/L (136-145) 12/24/23 17:55 Potassium 3.6 mmol/L (3.5-5.1) 12/24/23 17:55 Chloride 104 mmol/L (98-107) 12/24/23 17:55 Carbon Dioxide 20 mmol/L (22-29) L 12/24/23 17:55 Anion Gap 16.6 (5-19) 12/24/23 17:55 BUN 15 mg/dL (6-20) 12/24/23 17:55 Creatinine 0.5 mg/dL (0.5-0.9) 12/24/23 17:55 GFR Calculation 143.9 mL/min (90-130) H 12/24/23 17:55 Glucose 121 mg/dL (65-115) H 12/24/23 17:55 Calculated Osmolality 286 mOsm/kg (285-295) 12/24/23 17:55 Lactic Acid 2.7 mmol/L (0.5-2.2) H 12/24/23 17:55 Lactic Acid (Sepsis) 2.0 mmol/L (0.5-2.2) 12/24/23 20:09 Calcium 9.2 mg/dL (8.5-10.5) 12/24/23 17:55 Total Bilirubin 0.3 mg/dL (0.15-1.2) 12/24/23 17:55 AST 11 U/L (0-32) 12/24/23 17:55 ALT 11 U/L (0-33) 12/24/23 17:55 Alkaline Phosphatase 85 U/L (35-105) 12/24/23 17:55 Troponin T Baseline 7 ng/L (0-10) 12/24/23 17:55 C-Reactive Protein 6.3 mg/L (0.0-4.9) H 12/24/23 17:55 Total Protein 6.9 g/dL (6.6-8.7) 12/24/23 17:55 Albumin 4.2 g/dL (3.5-5.2) 12/24/23 17:55 Globulin 2.7 g/dL (1.3-4.6) 12/24/23 17:55 Lipase 18 U/L (13-60) 12/24/23 17:55 HCG, Qual Negative (Negative) 12/24/23 18:39 Urine Color Yellow (Yellow) 12/24/23 18:39 Urine Appearance Cloudy (CLEAR) A 12/24/23 18:39 Urine pH 7 (5-7) 12/24/23 18:39 Ur Specific [place] 1.010 (1.005-1.030) 12/24/23 18:39 Urine Protein 1+ (Negative) H 12/24/23 18:39 Urine Glucose (UA) Norm (Normal) 12/24/23 18:39 Urine Ketones 2+ (Negative) H 12/24/23 18:39 Urine Blood Neg (Negative) 12/24/23 18:39 Urine Nitrate Positive (Negative) A 12/24/23 18:39 Urine Bilirubin Neg (Negative) 12/24/23 18:39 Urine Urobilinogen Neg mg/dL (Negative) 12/24/23 18:39 Ur Leukocyte Esterase Trace (Negative) H 12/24/23 18:39 Urine RBC 0-4 /hpf (0-2) H 12/24/23 18:39 Urine WBC 5-10 /hpf (0-5) H 12/24/23 18:39 Ur Squamous Epith Cells 5-10 /hpf (0-5) H 12/24/23 18:39 Amorphous Sediment Trace /hpf 12/24/23 18:39 Urine Bacteria 3+ /hpf (NONE) H 12/24/23 18:39 Urine Mucus Trace /hpf 12/24/23 18:39 All radiology interpretation(s) finalized by discharge Discharge Plan Discharge Patient Disposition: Admitted As Inpatient Admit Provider: Fabrice Duval Clinical Impression: Acute acalculous cholecystitis, Urinary tract infection Condition: Stable Coding Level of Care Code ED Lead Generator for Roney Chahal
[2023-12-24 18:01] LABS: Basophils % 0.2 %; Eosinophils % 0.1 %; Hematocrit 36.8 % (36-47); Mean Corpuscular HGB Conc 33.4 g/dL (30-55); Mean Corpuscular Hemoglobin 28.3 pg (27-33); Mean Corpuscular Volume 84.6 fl (85-98); Mean Platelet Volume 10.7 fL (7.4-10.4); Monocytes # 0.4 10^3/uL (0.2-0.9); Monocytes % 3.7 %; Neutrophils # 10.52 10^3/uL (1.8-7.7); Neutrophils % 87.6 %; Nucleated Red Blood Cells % 0 %; Platelet Count 250 10^3/cmm (157-399); Red Blood Count 4.35 10^6/uL (3.85-5.65); Red Cell Distribution Width 13.2 % (12.1-15.1)
[2023-12-24] MEDS: ondansetron 2 mg/ML SDV 2 mL 4 MG IVP ×2 (18:05→20:17)
[2023-12-24] MEDS: ketorolac 30 mg/mL INJ IVP (18:05)
[2023-12-24 18:17] LABS: D Dimer 1.51 ug/mLFEU (0-0.59)
[2023-12-24 18:21] LABS: Alanine Aminotransferase 11 U/L (0-33); Albumin Level 4.2 g/dL (3.5-5.2); Alkaline Phosphatase 85 U/L (35-105); Anion Gap 16.6 (5-19); Aspartate Amino Transferase 11 U/L (0-32); Blood Urea Nitrogen 15 mg/dL (6-20); C Reactive Protein 6.3 mg/L (0.0-4.9); Calcium 9.2 mg/dL (8.5-10.5); Carbon Dioxide 20 mmol/L (22-29); Chloride 104 mmol/L (98-107); Creatinine Clr Calc Pharmacy 169.6349; Globulin 2.7 g/dL (1.3-4.6); Glomerular Filtration Rate 143.9 mL/min (90-130); Glucose 121 mg/dL (65-115); Lipase 18 U/L (13-60); Osmolality Calculated 286 mOsm/kg (285-295); Potassium 3.6 mmol/L (3.5-5.1); Sodium 137 mmol/L (136-145); Total Bilirubin 0.3 mg/dL (0.15-1.2); Total Protein 6.9 g/dL (6.6-8.7)
[2023-12-24 18:22] LABS: Lactic Sepsis W/Reflex 2.7 mmol/L (0.5-2.2); Troponin(5th) Baseline 7 ng/L (0-10)
--- NOTE | 2023-12-24 18:34 | CTR_ITS ---
PROCEDURE INFORMATION: Exam: CTA Chest With Contrast Exam date and time: 12/24/2023 6:57 PM Age: 33 years old Clinical indication: Pain and abnormal findings; Abnormal diagnostic tests; Elevated d-dimer; Chest pressure; Additional info: Chest pain, elevated ddimer TECHNIQUE: Imaging protocol: Computed tomographic angiography of the chest with contrast. Exam focused on the arteries. 3D rendering (Not supervised by radiologist): MIP and/or 3D reconstructed images were created by the technologist. Radiation optimization: All CT scans at this facility use at least one of these dose optimization techniques: automated exposure control; mA and/or kV adjustment per patient size (includes targeted exams where dose is matched to clinical indication); or iterative reconstruction. Contrast material: OMNI 350; Contrast volume: 73 ml; Contrast route: INTRAVENOUS (IV); COMPARISON: CR (CHEST, ) 12/24/2023 5:44 PM RADIATION DOSE METRICS: Total DLP (mGy-cm): 515.33 FINDINGS: Pulmonary arteries: No significant hypodense filling defects are seen within the pulmonary arteries or their branches to indicate pulmonary embolus. Aorta: Unremarkable. No aortic aneurysm. No aortic dissection. Lungs: No pulmonary parenchymal infiltrate or consolidation. No ground-glass opacity. Pleural spaces: Mild nonspecific posterior pleural thickening, ryryj-ngecczp-vksp-left. Small area of nodular pleural thickening versus subpleural nodule is seen posterolateral mid right lung level of approximately 5 mm. An additional small area of nodular pleural thickening versus subpleural nodule of 7 mm is seen posteromedial lower right lung. These are nonspecific. No pleural effusion. No pneumothorax. Heart: Unremarkable. No cardiomegaly. No pericardial effusion. No coronary artery calcification. Lymph nodes: No significant lymph node enlargement or lymphadenopathy. Bones/joints: No acute findings. Mild thoracolumbar scoliosis. Slight spondylotic change mid to lower thoracic spine. Soft tissues: Unremarkable. CT/CT angio chest PE protcl [id number] IMPRESSION: 1. No CT findings of pulmonary embolus. 2. Mild nonspecific posterior pleural thickening, right slightly greater than left, with 2 subcentimeter subpleural nodules versus small focal nodular pleural thickening as noted above. Consider inflammation or pleurisy though this may reflect chronic change as well. 3. No infiltrate or effusion or acute findings otherwise.
[2023-12-24 18:52] LABS: HCG Qualitative Urine. Negative (Negative)
[2023-12-24 19:00] LABS: Urine Color Yellow (Yellow)
[2023-12-24 19:01] LABS: Add Urine Culture? Yes; Amorphous Sediment Urine TRACE /hpf; Bacteria Urine 3+ /hpf; Bilirubin Urine Neg (Negative); Blood Urine Neg (Negative); Glucose Urine UA Norm (Normal); Ketones Urine 2+ (Negative); Leukocyte Esterase Urine Trace (Negative); Mucus Urine TRACE /hpf; Nitrate Urine Positive (Negative); Protein Urine 1+ (Negative); RBC Urine 0-4 /hpf (0-2); Urine Appearance Cloudy (CLEAR); Urobilinogen Urine Neg (Negative); pH Urine 7 (5-7)
[2023-12-24] MEDS: iohexol 350 mg/mL 500 mL Btl (per mL) IV (19:20)
[2023-12-24 19:46] LABS: Reflex Lactate Order REFLEX LACTIC ORDERD
[2023-12-24] MEDS: morphine 4 mg/mL SDV 1 mL IVP (20:18)
[2023-12-24] MEDS: cefTRIAXone 1,000 MG in sodium chloride 0.9% (plus) 50 ML 100 MG IV (20:22)
--- NOTE | 2023-12-24 20:49 | ECG_ITS ---
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 Measurements Intervals [place] Rate: 63 P: 50 NH: 135 QRS: 48 QRSD: 94 T: 47 QT: 408 QTc: 420 Interpretive Statements SINUS RHYTHM WITH SINUS ARRHYTHMIA Compared to ECG 12/24/2023 17:15:41 No significant changes Electronically Signed On 12-24-2023 21:16:24 CDT by Jon Alvarez M.D. [id number]
[2023-12-24] MEDS: lactated ringers 1,000 ML 125 ML IV (21:47)
[2023-12-24] MEDS: piperacillin-tazobactam 3.375 GM in sodium chloride 0.9% (plus) 50 ML IV (21:47)
--- NOTE | 2023-12-24 23:15 | ECG_ITS ---
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 Measurements Intervals [place] Rate: 58 P: 45 WI: 139 QRS: 33 QRSD: 92 T: 36 QT: 412 QTc: 407 Interpretive Statements SINUS BRADYCARDIA WITH SINUS ARRHYTHMIA LOW QRS VOLTAGE IN PRECORDIAL LEADS [QRS DEFLECTION < 1.0 mV IN CHEST LEADS] Compared to ECG 12/24/2023 20:49:38 Low QRS voltage now present Sinus rhythm no longer present Electronically Signed On 12-26-2023 22:04:28 CDT by Jon Alvarez M.D. [id number]
[2023-12-25] VITALS (12 sets, daily range): BP systolic 110–163; BP diastolic 70–102; PULSE 57–96; RESP 16–20; TEMP 36.1–37.1; O2SAT 95–99; BMI 38.2
[2023-12-25] MEDS: lactated ringers 1,000 ML 125 ML IV (05:54)
[2023-12-25] MEDS: piperacillin-tazobactam 3.375 GM in sodium chloride 0.9% (plus) 50 ML IV (05:54)
[2023-12-25 05:57] LABS: Basophils % 0.2 %; Eosinophils % 0.4 %; Hematocrit 40.1 % (36-47); Lymphocytes # 1.7 10^3/uL (0.8-4.8); Lymphocytes % 15.9 %; Mean Corpuscular HGB Conc 32.4 g/dL (30-55); Mean Corpuscular Hemoglobin 28.3 pg (27-33); Mean Corpuscular Volume 87.2 fl (85-98); Mean Platelet Volume 10.8 fL (7.4-10.4); Monocytes # 0.7 10^3/uL (0.2-0.9); Monocytes % 6.5 %; Neutrophils # 8.28 10^3/uL (1.8-7.7); Neutrophils % 76.5 %; Nucleated Red Blood Cells % 0 %; Platelet Count 263 10^3/cmm (157-399); Red Cell Distribution Width 13.5 % (12.1-15.1); White Blood Count 10.81 10^3/uL (3.29-11.43)
[2023-12-25 06:23] LABS: Alanine Aminotransferase 9 U/L (0-33); Albumin Level 3.9 g/dL (3.5-5.2); Alkaline Phosphatase 84 U/L (35-105); Aspartate Amino Transferase 10 U/L (0-32); Blood Urea Nitrogen 14 mg/dL (6-20); Calcium 8.9 mg/dL (8.5-10.5); Carbon Dioxide 23 mmol/L (22-29); Chloride 106 mmol/L (98-107); Creatinine Clr Calc Pharmacy 129.9063; Globulin 2.8 g/dL (1.3-4.6); Glomerular Filtration Rate 97.6 mL/min (90-130); Glucose 106 mg/dL (65-115); Osmolality Calculated 287 mOsm/kg (285-295); Sodium 138 mmol/L (136-145); Total Bilirubin 0.2 mg/dL (0.15-1.2); Total Protein 6.7 g/dL (6.6-8.7)
--- NOTE | 2023-12-25 08:31 | P.HP_ITS ---
Providers/Chief Complaint 2 Admitting Physician: Fabrice Duval MD Chief Complaint: CHEST PAIN History of Present Illness Chetna Mireles is a 33 year old female who presented to the emergency department with right upper quadrant pain nausea and vomit. Initially 2 without cardiac in nature patient had a CT of the chest which was negative, laboratory workup was mostly unremarkable except for an mild elevation of the white count to 12. Ultrasound the gallbladder was obtained which shows some nonspecific thickening of the gallbladder wall that can be seen acute or chronic gallbladder disease and therefore he was consulted for evaluation. Will admit the patient with a suspected diagnosis of biliary colic versus acute cholecystitis. On my evaluation patient pain had completely resolved, no nausea or vomit reported since presentation to the hospital, no fever or chills. Review of Systems 2 General: Reports: 10 or more systems reviewed and unremarkable except in HPI and below Medications/Allergies Home Medications Medication Instructions Recorded Confirmed Last Taken Type ibuprofen 800 mg tablet 800 mg PO Q8H pain #30 tabs 11/07/20 12/24/23 Unknown Rx CAM Boot #1 ea 12/19/23 12/24/23 Unknown Rx Allergies Allergy/AdvReac Type Severity Reaction Status Date / Time No Known Allergies Allergy Verified 12/24/23 21:20 PFSH Acute 2 PFSH: Medical History Intermittent asthma with acute exacerbation Surgical History History of placement of ear tubes S/P primary low transverse (11/05/20) With sterilization. DX: NRFHT. Performed by Dr. Pak at [facility] in [place], [place]. S/P tubal ligation (11/05/20) Complete bilateral salpingectomy performed at time of . Performed by Dr. Pak at [facility] in [place], [place]. Family History Denies family history of Colon cancer Ovarian cancer Diabetes Clotting disorder Breast cancer Bleeding disorder Hypertension Uterine cancer Thyroid disease Stroke Social History Smoking and tobacco/nicotine status: tobacco/nicotine user, details unknown Substance/Drug Use: never Vitals/I&O/Wt Last Vital Signs Temp 97.5 F L 12/25/23 07:41 Pulse 67 12/25/23 07:41 Resp 18 12/25/23 07:41 BP 133/91 12/25/23 07:41 Pulse Ox 97 12/25/23 07:41 O2 Del Method Room Air 12/25/23 07:41 12/24/23 12/25/23 12/25/23 22:59 06:59 14:59 Intake Total 50 / 50 1050 / 1100 Output Total 400 / 400 Balance 50 / 50 650 / 700 Weight last 48 hrs Weight 216 lb 3.2 oz Weight 214 lb 8 oz Weight 190 lb Physical Exam 2 Narrative: General : Patient is well developed , no acute distress, oriented x3 Head : Normal cephalic, a-traumatic. Nose : Mucous membranes are without erythema. Lungs : Equal chest rise bilaterally, no use of accessory muscles, trachea is midline. CV : Rate and rhythm are normal. Abdomen : Soft, ND, NT, no g/r/m, negative Nagy sign Extremities : No edema. Upper extremities are normal bilaterally. Back : non-tender to palpation, no CVA tenderness. Data 12/25/23 05:41 12/25/23 05:41 A&P Assessment and plan (1) Biliary colic: Plan Patient who was admitted with a possible diagnosis of acute cholecystitis, after initiation of antibiotics and IV fluids symptoms had completely resolved. Patient does not have any abdominal tenderness, her white count is normal. No temperature elevation or any other symptoms concerning for acute cholecystitis. At the moment, patient does not have meet criteria for acute cholecystitis following [place] guidelines 18 diagnostic criteria, therefore her symptoms are more consistent with biliary colic. I have extensive discussion with the patient, I do think that her gallbladder needs to be removed to prevent further episodes, after my independent review of imaging I have also noticed that the liver is enlarged, I explained to the patient that I will prefer her to follow- up high-protein low-fat and low processed food diet for 2 weeks in order to eliminate fat from the liver and proceed with surgery. In addition patient has explained to me that she has been waiting to get foot surgery that is scheduled for tomorrow. In this case and since patient does not appear to have acute cholecystitis I agree that she should proceed with her foot surgery tomorrow and then I will book her for a laparoscopic cholecystectomy on January 07, I have given instructions and warning signs that she will follow at home and I will contact the clinic to book this procedure. -Low-fat diet -Short course of antibiotics -Pain control -For elective cholecystectomy Attestations 2 Medical Necessity Statement*: for discharge today. Coding Level of Care Code Acute Code for Chg Fwd Diagnoses Biliary colic K80.50
--- NOTE | 2023-12-25 08:37 | P.DS_ITS ---
Discharge Providers Date of Admission: 12/24/23 20:42 Date of Discharge: December 25, 2023 Attending Provider at Admission: Fabrice Duval MD Attending Provider at Discharge: Fabrice Duval MD Diagnoses at Discharge Discharge Diagnosis (1) Biliary colic: Details from hospital stay: Patient who was admitted with a possible diagnosis of acute cholecystitis, after initiation of antibiotics and IV fluids symptoms had completely resolved. Patient does not have any abdominal tenderness, her white count is normal. No temperature elevation or any other symptoms concerning for acute cholecystitis. At the moment, patient does not have meet criteria for acute cholecystitis following [place] guidelines 18 diagnostic criteria, therefore her symptoms are more consistent with biliary colic. I have extensive discussion with the patient, I do think that her gallbladder needs to be removed to prevent further episodes, after my independent review of imaging I have also noticed that the liver is enlarged, I explained to the patient that I will prefer her to follow- up high-protein low-fat and low processed food diet for 2 weeks in order to eliminate fat from the liver and proceed with surgery. In addition patient has explained to me that she has been waiting to get foot surgery that is scheduled for tomorrow. In this case and since patient does not appear to have acute cholecystitis I agree that she should proceed with her foot surgery tomorrow and then I will book her for a laparoscopic cholecystectomy on January 07, I have given instructions and warning signs that she will follow at home and I will contact the clinic to book this procedure. Status: Acute Reason for Visit Reason for Visit: CHEST PAIN Physical Exam GI: OTHER: abdomen soft, non tender and not distended Discharge Data Studies Completed and Pending Completed Studies During Hospitalization Category Date Time Status CT angio chest PE protcl [id number] Stat Cat Scan 12/24/23 18:34 Completed XR chest 1V portable [id number] Stat Exams 12/24/23 17:16 Completed US gall bladder [id number] Stat Ultrasound 12/24/23 17:17 Completed Pending at discharge Category Date Time Status Urine Culture Stat Lab 12/24/23 18:39 Received Radiology Impressions Chest X-Ray 12/24/23 17:16 IMPRESSION: No acute cardiopulmonary abnormality. Gallbladder Ultrasound 12/24/23 17:17 IMPRESSION: 1. Thickened gallbladder wall measuring up to 7 mm, which can be seen with cholecystitis of acute or chronic nature. 2. Several tiny echogenic foci are seen within the gallbladder on the decubitus views. This could represent tiny stones or small amount debris/sludge. 3. No biliary ductal dilatation. Chest CTA 12/24/23 18:34 IMPRESSION: 1. No CT findings of pulmonary embolus. 2. Mild nonspecific posterior pleural thickening, right slightly greater than left, with 2 subcentimeter subpleural nodules versus small focal nodular pleural thickening as noted above. Consider inflammation or pleurisy though this may reflect chronic change as well. 3. No infiltrate or effusion or acute findings otherwise. Laboratory Results WBC 10.81 10^3/uL (3.29-11.43) 12/25/23 05:41 RBC 4.60 10^6/uL (3.85-5.65) 12/25/23 05:41 Hgb 13.00 g/dL (11.27-16.99) 12/25/23 05:41 Hct 40.1 % (36-47) 12/25/23 05:41 MCV 87.2 fl (85-98) 12/25/23 05:41 MCH 28.3 pg (27-33) 12/25/23 05:41 MCHC 32.4 g/dL (30-55) 12/25/23 05:41 RDW 13.5 % (12.1-15.1) 12/25/23 05:41 Plt Count 263 10^3/cmm (157-399) 12/25/23 05:41 MPV 10.8 fL (7.4-10.4) H 12/25/23 05:41 Neut % (Auto) 76.5 % 12/25/23 05:41 Lymph % (Auto) 15.9 % 12/25/23 05:41 Page % (Auto) 6.5 % 12/25/23 05:41 Eos % (Auto) 0.4 % 12/25/23 05:41 Baso % (Auto) 0.2 % 12/25/23 05:41 Neut # (Auto) 8.28 10^3/uL (1.8-7.7) H 12/25/23 05:41 Lymph # (Auto) 1.7 10^3/uL (0.8-4.8) 12/25/23 05:41 [place] # (Auto) 0.7 10^3/uL (0.2-0.9) 12/25/23 05:41 Eos # (Auto) 0.0 10^3/uL (0.0-0.8) 12/25/23 05:41 Baso # (Auto) 0.0 10^3/uL (0.0-0.1) 12/25/23 05:41 Nucleated RBC % (auto) 0 % 12/25/23 05:41 Nucleated RBCs # 0.0 /100WBC 12/25/23 05:41 D-Dimer 1.51 ug/mLFEU (0-0.59) H 12/24/23 17:55 Sodium 138 mmol/L (136-145) 12/25/23 05:41 Potassium 4.0 mmol/L (3.5-5.1) 12/25/23 05:41 Chloride 106 mmol/L (98-107) 12/25/23 05:41 Carbon Dioxide 23 mmol/L (22-29) 12/25/23 05:41 Anion Gap 13.0 (5-19) 12/25/23 05:41 BUN 14 mg/dL (6-20) 12/25/23 05:41 Creatinine 0.7 mg/dL (0.5-0.9) 12/25/23 05:41 GFR Calculation 97.6 mL/min (90-130) 12/25/23 05:41 Glucose 106 mg/dL (65-115) 12/25/23 05:41 Calculated Osmolality 287 mOsm/kg (285-295) 12/25/23 05:41 Lactic Acid 2.7 mmol/L (0.5-2.2) H 12/24/23 17:55 Lactic Acid (Sepsis) 2.0 mmol/L (0.5-2.2) 12/24/23 20:09 Calcium 8.9 mg/dL (8.5-10.5) 12/25/23 05:41 Total Bilirubin 0.2 mg/dL (0.15-1.2) 12/25/23 05:41 Direct Bilirubin 0.20 mg/dL (0.00-0.30) 12/25/23 05:41 AST 10 U/L (0-32) 12/25/23 05:41 ALT 9 U/L (0-33) 12/25/23 05:41 Alkaline Phosphatase 84 U/L (35-105) 12/25/23 05:41 Troponin T Baseline 7 ng/L (0-10) 12/24/23 17:55 C-Reactive Protein 6.3 mg/L (0.0-4.9) H 12/24/23 17:55 Total Protein 6.7 g/dL (6.6-8.7) 12/25/23 05:41 Albumin 3.9 g/dL (3.5-5.2) 12/25/23 05:41 Globulin 2.8 g/dL (1.3-4.6) 12/25/23 05:41 Lipase 18 U/L (13-60) 12/24/23 17:55 HCG, Qual Negative (Negative) 12/24/23 18:39 Urine Color Yellow (Yellow) 12/24/23 18:39 Urine Appearance Cloudy (CLEAR) A 12/24/23 18:39 Urine pH 7 (5-7) 12/24/23 18:39 Ur Specific [place] 1.010 (1.005-1.030) 12/24/23 18:39 Urine Protein 1+ (Negative) H 12/24/23 18:39 Urine Glucose (UA) Norm (Normal) 12/24/23 18:39 Urine Ketones 2+ (Negative) H 12/24/23 18:39 Urine Blood Neg (Negative) 12/24/23 18:39 Urine Nitrate Positive (Negative) A 12/24/23 18:39 Urine Bilirubin Neg (Negative) 12/24/23 18:39 Urine Urobilinogen Neg mg/dL (Negative) 12/24/23 18:39 Ur Leukocyte Esterase Trace (Negative) H 12/24/23 18:39 Urine RBC 0-4 /hpf (0-2) H 12/24/23 18:39 Urine WBC 5-10 /hpf (0-5) H 12/24/23 18:39 Ur Squamous Epith Cells 5-10 /hpf (0-5) H 12/24/23 18:39 Amorphous Sediment Trace /hpf 12/24/23 18:39 Urine Bacteria 3+ /hpf (NONE) H 12/24/23 18:39 Urine Mucus Trace /hpf 12/24/23 18:39 Vitals Last Vital Signs Temp 97.5 F L 12/25/23 07:41 Pulse 67 12/25/23 07:41 Resp 18 12/25/23 07:41 BP 133/91 12/25/23 07:41 Pulse Ox 97 12/25/23 07:41 O2 Del Method Room Air 12/25/23 07:41 Discharge Plan Discharge Patient Disposition: Home Condition: Stable Prescriptions: New amoxicillin-pot clavulanate 875-125 mg tablet 1 tab PO BID 7 Days Qty: 14 0RF meloxicam 7.5 mg tablet 7.5 mg PO DAILY Qty: 7 0RF ondansetron 4 mg tablet,disintegrating 4 mg PO Q8H PRN (Reason: nausea and vomiting) 4 Days Qty: 20 0RF pantoprazole 40 mg tablet,delayed release (DR/EC) 40 mg PO DAILY Qty: 14 0RF Discontinued ibuprofen 800 mg tablet 800 mg PO Q8H Qty: 30 0RF No Action (DME) CAM Boot See Rx Instructions .Route .MEDSUPPLY Qty: 1 0RF Rx Instructions: As directed by HOME Discharge Orders: Discharge Order (Routine); Ordered 12/25/23 Ordered By: Fabrice Duval Referrals: Fabrice Duval MD [Physician] - (1 month) Discharge Diet: Low Fat Discharge Activity: Resume usual activity Patient Instructions: Acute Wound Care (DC), Opioid Safety, Post Anesthesia Care Activity Restrictions/Additional Instructions: Patient will follow a strict low-fat, high-protein, low processed food diet for the next 2 weeks, she will be booked for laparoscopic possible open cholecystectomy on January 07. Patient has been instructed to return to the hospital if she has fever chills severe abdominal pain that is getting worse over time nausea vomit. Discharge Attestations Time Spent in Discharge Care*: less than 30 min Quality Metrics Clinical Quality Measures [ No reported AMI, CVA or VTE this stay] Coding Level of Care Code Acute Code for Chg Fwd Diagnoses Biliary colic K80.50
[2023-12-25] MEDS: ketorolac 30 mg/mL INJ 15 MG IVP (09:05)
[2023-12-25] MEDS: ondansetron 2 mg/ML SDV 2 mL 4 MG IVP (10:39)
--- NOTE | 2023-12-25 11:22 | P.MISC_ITS ---
Miscellaneous Note Purpose of Documentation: Patient care update Note: Patient initially doing well this morning but after initiation of diet she had 2 episodes of vomiting. With this symptoms I think it will be appropriate to proceed with laparoscopic cholecystectomy instead of having her do it as an outpatient. I have offered the patient laparoscopic cholecystectomy for acute cholecystitis. All the risk and benefits of the procedure were discussed with t he patient including the risks of bleeding, infection, damage to surrounding structures including liver, duodenum, colon, risk of injuring bile ducts requiring extensive surgery at higher level of care facility, risk of retained stones, bile leak, bili Perri, need for subtotal cholecystectomy, hernia and wound related complications, need to conversion to open procedure. Patient shows understanding and would like to proceed. Lap francie will be booked for today and patient will be discharged after surgery.
--- NOTE | 2023-12-25 13:40 | ANES.PREANE2 ---
Pre-Anesthetic Assessment Height/Weight: Height 1.6 m Weight 98.067 kg Temp Pulse Resp BP Pulse Ox O2 Del Method 97.7 F 57 L 20 H 145/82 99 Room Air 12/25/23 12:17 12/25/23 12:17 12/25/23 12:17 12/25/23 12:17 12/25/23 12:17 12/25/23 12:17 Preop Diagnosis: Acute cholecystitis Operation Date: 12/25/23 14:05 Proposed Procedures p Laparoscopic Cholecystectomy(Not Applicable) - Fabrice Duval MD Familial anesthetic complications: none Was Beta Jong taken within 24 hours: N/A Was Clonidine taken within 24 hours: N/A Last intake: Intake Last Liquid Date 12/25/23 Last Liquid Time 10:30 Last Solid Date 12/25/23 Last Solid Time 10:30 Social No alcohol and No tobacco Exam alert, oriented x 3, clear to auscultation bilaterally and regular rate & rhythm Airway Submandibular: within normal limits Cervical ROM: within normal limits Mallampati: Class II Dentition: full GI Gastroesophageal Reflux Disease Metabolic Morbid Obesity Anesthetic Plan ASA status: 2 Anesthesia: General Medications/Allergies Home Medications Medication Instructions Recorded Confirmed Last Taken Type CAM Boot #1 ea 12/19/23 12/24/23 Unknown Rx amoxicillin 875 mg-potassium 1 tab PO BID 7 days #14 tabs 12/25/23 Unknown Rx clavulanate 125 mg tablet meloxicam 7.5 mg tablet 7.5 mg PO DAILY #7 tabs 12/25/23 Unknown Rx ondansetron 4 mg disintegrating 4 mg PO Q8H PRN nausea and 12/25/23 Unknown Rx tablet vomiting 4 days #20 tabs pantoprazole 40 mg tablet,delayed 40 mg PO DAILY #14 tabs 12/25/23 Unknown Rx release Allergies Allergy/AdvReac Type Severity Reaction Status Date / Time No Known Allergies Allergy Verified 12/24/23 21:20 Current Medications Generic Name Dose Route Start Last Admin Trade Name Freq PRN Reason Stop Dose Admin Piperacillin Sod/Tazobactam 50 mls @ 12.5 mls/hr 12/24/23 21:45 12/25/23 10:21 Sod 3.375 gm/ Sodium Chloride IV Infused Q8H CLARISA Infusion Protocol Lactated Ringer's 1,000 mls @ 125 mls/hr 12/24/23 21:45 12/25/23 11:04 Lactated Ringers IV 125 mls/hr .Q8H CLARISA Infusion Ketorolac Tromethamine 15 mg 12/24/23 21:13 12/25/23 09:05 Ketorolac 30 Mg/Ml Inj IVP 12/29/23 21:12 15 mg Q6H PRN Administration MODERATE PAIN Ondansetron HCl 4 mg 12/25/23 10:21 12/25/23 10:39 Ondansetron 2 Mg/Ml Sdv 2 Ml IVP 4 mg Q4H PRN Administration NAUSEA AND VOMITING PFSH Anesthesia Medical History Intermittent asthma with acute exacerbation Surgical History History of placement of ear tubes S/P primary low transverse (11/05/20) With sterilization. DX: NRFHT. Performed by Dr. Pak at [facility] in [place], [place]. S/P tubal ligation (11/05/20) Complete bilateral salpingectomy performed at time of . Performed by Dr. Pak at [facility] in [place], [place]. Family History Denies family history of Colon cancer Ovarian cancer Diabetes Clotting disorder Breast cancer Bleeding disorder Hypertension Uterine cancer Thyroid disease Stroke Social History Smoking and tobacco/nicotine status: tobacco/nicotine user, details unknown Substance/Drug Use: never Data Anesthesia 12/25/23 05:41 12/25/23 05:41 Short CBC 12/24/23 12/25/23 Range/Units 17:55 05:41 WBC 12.00 H 10.81 (3.29-11.43) 10^3/uL Hgb 12.30 13.00 (11.27-16.99) g/dL Hct 36.8 40.1 (36-47) % MCV 84.6 L 87.2 (85-98) fl Plt Count 250 263 (157-399) 10^3/cmm Neut % (Auto) 87.6 76.5 % Neut # (Auto) 10.52 H 8.28 H (1.8-7.7) 10^3/uL BMP 12/24/23 12/25/23 17:55 05:41 Sodium 137 138 Potassium 3.6 4.0 Chloride 104 106 Carbon Dioxide 20 L 23 BUN 15 14 Creatinine 0.5 0.7 Glucose 121 H 106 Calcium 9.2 8.9 Cardiac Enzymes 12/24/23 Range/Units 17:55 Troponin T Baseline 7 (0-10) ng/L Liver Function 12/24/23 12/25/23 Range/Units 17:55 05:41 Total Bilirubin 0.3 0.2 (0.15-1.2) mg/dL Direct Bilirubin 0.20 (0.00-0.30) mg/dL AST 11 10 (0-32) U/L ALT 11 9 (0-33) U/L Alkaline Phosphatase 85 84 (35-105) U/L Albumin 4.2 3.9 (3.5-5.2) g/dL Urine 12/24/23 Range/Units 18:39 Urine Color Yellow (Yellow) Urine Appearance Cloudy A (CLEAR) Urine pH 7 (5-7) Ur Specific [place] 1.010 (1.005-1.030) Urine Protein 1+ H (Negative) Urine Glucose (UA) Norm (Normal) Urine Ketones 2+ H (Negative) Urine Nitrate Positive A (Negative) Urine Bilirubin Neg (Negative) Ur Leukocyte Esterase Trace H (Negative) Urine RBC 0-4 H (0-2) /hpf Urine WBC 5-10 H (0-5) /hpf Coags 12/24/23 17:55 D-Dimer 1.51 H C-Reactive Protein 6.3 H Cardiac Studies: No Data to Display
[2023-12-25] MEDS: scopolamine 1.5 Patch 1 PATCH TRANSDERMA (13:49)
[2023-12-25] MEDS: sodium chloride 0.9% 1,000 ML 30 ML IV (13:50)
[2023-12-25] MEDS: BUPivacaine 0.25% INJ 10 mL INJECTION (16:23)
[2023-12-25] MEDS: lidocaine-epi 1% 20 mL INJ 10 ML INJECTION (16:23)
--- NOTE | 2023-12-25 17:39 | P.OP_ITS ---
Operative Report Date of procedure: December 25, 2023 Pre-op diagnosis: Acute cholecystitis Post-op diagnosis: Acute cholecystitis Post-op findings: Acutely inflamed gallbladder, otherwise normal biliary anatomy Procedure done: Laparoscopic cholecystectomy Specimens removed/disposition: Gallbladder and contents Surgeon: Fabrice Duval MD Geriatric Psychiatrist: JESSY OR STaff Estimated blood loss: 10 Complications: none Brief History: 33-year-old female who presented to the hospital with biliary colic, she was unable to tolerate p.o. and her abdominal pain persisted which was consistent with the possibility of acute cholecystitis and therefore we decided to proceed to the OR for laparoscopic possible open cholecystectomy. Procedure: Patient was brought into the OR, she was placed in a supine position. General anesthesia was given. The abdomen was prepped and draped in the usual sterile fashion. Timeout was conducted. The abdomen was accessed via a 5 mm incision in the left upper quadrant with Optiview trocar. After initial pneumoperitoneum no evidence of visceral injury was noted during entry. Additional 12 mm trocar was placed in the supraumbilical position under direct visualization, additional 5 mm trocars were placed in the epigastrium right upper quadrant and right flank in direct visualization. The gallbladder was grasped by the fundus and retracted cephalad, I then retracted the infundibulum in the inferolateral direction. Significant inflammation was noted at the level of the hepatocystic triangle, I proceeded to open the peritoneum anterior to hepatocystic triangle with electrocautery, this opening was carried on the medial and lateral direction to the edges of the liver and then on the sides of the gallbladder to allow for better visualization. With careful dissection I was able to encircle the cystic duct and artery and elevate the lower third of the gallbladder from the liver bed, thus creating a critical view of safety. Cystic duct and artery were double clipped proximally and single clipped distally and transected, the gallbladder was removed from the liver bed with electrocautery. Hemostasis was obtained from the liver bed and at the end of the procedure the liver bed was noted to be hemostatic and no evidence of bile leak noted. The specimen was retrieved via the umbilical trocar site in an Endo Catch bag. This trocar site was then closed with a 0 Vicryl using a Yonny-Aria suture passer under direct visualization. The left upper quadrant epigastric and right upper quadrant trocars were removed under direct visualization and the right flank trocar was used to evacuate the pneumoperitoneum and subsequently removed. The wounds were closed in layers using #3-0 Vicryl for the subcutaneous tissue and #4 Monocryl for the skin. Dermabond was applied. At the end of the procedure all counts were correct, the patient tolerated well the procedure and was transferred to the PACU in stable condition.
--- NOTE | 2023-12-25 17:44 | P.DS_ITS ---
Discharge Providers Date of Admission: 12/24/23 20:42 Date of Discharge: December 25, 2023 Attending Provider at Admission: Fabrice Duval MD Attending Provider at Discharge: Fabrice Duval MD Diagnoses at Discharge Discharge Diagnosis (1) Biliary colic: Status: Acute Reason for Visit Reason for Visit: CHEST PAIN Hospital Course Hospital Course Is a 33-year-old female who was admitted to the hospital with acute abdominal pain and elevated white count, initially she did not meet criteria for acute cholecystitis and she was planned to be discharged home to follow-up in my office to have an elective cholecystectomy but due to p.o. intolerance and worsening of her abdominal pain we decided to proceed with laparoscopic cholecystectomy. Laparoscopic cholecystectomy was done and show evidence of acute cholecystitis. Patient tolerated well the procedure, will be discharged on the postoperative. To follow-up as outpatient. Physical Exam GI: OTHER: Abdomen soft, nontender, nondistended, surgical incisions covered with Dermabond. Discharge Data Studies Completed and Pending Completed Studies During Hospitalization Category Date Time Status CT angio chest PE protcl [id number] Stat Cat Scan 12/24/23 18:34 Completed XR chest 1V portable [id number] Stat Exams 12/24/23 17:16 Completed US gall bladder [id number] Stat Ultrasound 12/24/23 17:17 Completed Pending at discharge Category Date Time Status Urine Culture Stat Lab 12/24/23 18:39 Received Radiology Impressions Chest X-Ray 12/24/23 17:16 IMPRESSION: No acute cardiopulmonary abnormality. Gallbladder Ultrasound 12/24/23 17:17 IMPRESSION: 1. Thickened gallbladder wall measuring up to 7 mm, which can be seen with cholecystitis of acute or chronic nature. 2. Several tiny echogenic foci are seen within the gallbladder on the decubitus views. This could represent tiny stones or small amount debris/sludge. 3. No biliary ductal dilatation. Chest CTA 12/24/23 18:34 IMPRESSION: 1. No CT findings of pulmonary embolus. 2. Mild nonspecific posterior pleural thickening, right slightly greater than left, with 2 subcentimeter subpleural nodules versus small focal nodular pleural thickening as noted above. Consider inflammation or pleurisy though this may reflect chronic change as well. 3. No infiltrate or effusion or acute findings otherwise. Laboratory Results WBC 10.81 10^3/uL (3.29-11.43) 12/25/23 05:41 RBC 4.60 10^6/uL (3.85-5.65) 12/25/23 05:41 Hgb 13.00 g/dL (11.27-16.99) 12/25/23 05:41 Hct 40.1 % (36-47) 12/25/23 05:41 MCV 87.2 fl (85-98) 12/25/23 05:41 MCH 28.3 pg (27-33) 12/25/23 05:41 MCHC 32.4 g/dL (30-55) 12/25/23 05:41 RDW 13.5 % (12.1-15.1) 12/25/23 05:41 Plt Count 263 10^3/cmm (157-399) 12/25/23 05:41 MPV 10.8 fL (7.4-10.4) H 12/25/23 05:41 Neut % (Auto) 76.5 % 12/25/23 05:41 Lymph % (Auto) 15.9 % 12/25/23 05:41 [place] % (Auto) 6.5 % 12/25/23 05:41 Eos % (Auto) 0.4 % 12/25/23 05:41 Baso % (Auto) 0.2 % 12/25/23 05:41 Neut # (Auto) 8.28 10^3/uL (1.8-7.7) H 12/25/23 05:41 Lymph # (Auto) 1.7 10^3/uL (0.8-4.8) 12/25/23 05:41 [place] # (Auto) 0.7 10^3/uL (0.2-0.9) 12/25/23 05:41 Eos # (Auto) 0.0 10^3/uL (0.0-0.8) 12/25/23 05:41 Baso # (Auto) 0.0 10^3/uL (0.0-0.1) 12/25/23 05:41 Nucleated RBC % (auto) 0 % 12/25/23 05:41 Nucleated RBCs # 0.0 /100WBC 12/25/23 05:41 D-Dimer 1.51 ug/mLFEU (0-0.59) H 12/24/23 17:55 Sodium 138 mmol/L (136-145) 12/25/23 05:41 Potassium 4.0 mmol/L (3.5-5.1) 12/25/23 05:41 Chloride 106 mmol/L (98-107) 12/25/23 05:41 Carbon Dioxide 23 mmol/L (22-29) 12/25/23 05:41 Anion Gap 13.0 (5-19) 12/25/23 05:41 BUN 14 mg/dL (6-20) 12/25/23 05:41 Creatinine 0.7 mg/dL (0.5-0.9) 12/25/23 05:41 GFR Calculation 97.6 mL/min (90-130) 12/25/23 05:41 Glucose 106 mg/dL (65-115) 12/25/23 05:41 Calculated Osmolality 287 mOsm/kg (285-295) 12/25/23 05:41 Lactic Acid 2.7 mmol/L (0.5-2.2) H 12/24/23 17:55 Lactic Acid (Sepsis) 2.0 mmol/L (0.5-2.2) 12/24/23 20:09 Calcium 8.9 mg/dL (8.5-10.5) 12/25/23 05:41 Total Bilirubin 0.2 mg/dL (0.15-1.2) 12/25/23 05:41 Direct Bilirubin 0.20 mg/dL (0.00-0.30) 12/25/23 05:41 AST 10 U/L (0-32) 12/25/23 05:41 ALT 9 U/L (0-33) 12/25/23 05:41 Alkaline Phosphatase 84 U/L (35-105) 12/25/23 05:41 Troponin T Baseline 7 ng/L (0-10) 12/24/23 17:55 C-Reactive Protein 6.3 mg/L (0.0-4.9) H 12/24/23 17:55 Total Protein 6.7 g/dL (6.6-8.7) 12/25/23 05:41 Albumin 3.9 g/dL (3.5-5.2) 12/25/23 05:41 Globulin 2.8 g/dL (1.3-4.6) 12/25/23 05:41 Lipase 18 U/L (13-60) 12/24/23 17:55 HCG, Qual Negative (Negative) 12/24/23 18:39 Urine Color Yellow (Yellow) 12/24/23 18:39 Urine Appearance Cloudy (CLEAR) A 12/24/23 18:39 Urine pH 7 (5-7) 12/24/23 18:39 Ur Specific [place] 1.010 (1.005-1.030) 12/24/23 18:39 Urine Protein 1+ (Negative) H 12/24/23 18:39 Urine Glucose (UA) Norm (Normal) 12/24/23 18:39 Urine Ketones 2+ (Negative) H 12/24/23 18:39 Urine Blood Neg (Negative) 12/24/23 18:39 Urine Nitrate Positive (Negative) A 12/24/23 18:39 Urine Bilirubin Neg (Negative) 12/24/23 18:39 Urine Urobilinogen Neg mg/dL (Negative) 12/24/23 18:39 Ur Leukocyte Esterase Trace (Negative) H 12/24/23 18:39 Urine RBC 0-4 /hpf (0-2) H 12/24/23 18:39 Urine WBC 5-10 /hpf (0-5) H 12/24/23 18:39 Ur Squamous Epith Cells 5-10 /hpf (0-5) H 12/24/23 18:39 Amorphous Sediment Trace /hpf 12/24/23 18:39 Urine Bacteria 3+ /hpf (NONE) H 12/24/23 18:39 Urine Mucus Trace /hpf 12/24/23 18:39 Vitals Last Vital Signs Temp 97.7 F 12/25/23 12:17 Pulse 57 L 12/25/23 12:17 Resp 20 H 12/25/23 12:17 BP 145/82 12/25/23 12:17 Pulse Ox 99 12/25/23 12:17 O2 Del Method Room Air 12/25/23 12:17 Discharge Plan Discharge Patient Disposition: Home Condition: Stable Prescriptions: New amoxicillin-pot clavulanate 875-125 mg tablet 1 tab PO BID 7 Days Qty: 14 0RF meloxicam 7.5 mg tablet 7.5 mg PO DAILY Qty: 7 0RF ondansetron 4 mg tablet,disintegrating 4 mg PO Q8H PRN (Reason: nausea and vomiting) 4 Days Qty: 20 0RF pantoprazole 40 mg tablet,delayed release (DR/EC) 40 mg PO DAILY Qty: 14 0RF oxycodone 5 mg tablet 5 mg PO Q8H PRN (Reason: pain) 5 Days Qty: 14 0RF Discontinued ibuprofen 800 mg tablet 800 mg PO Q8H Qty: 30 0RF No Action (DME) CAM Boot See Rx Instructions .Route .MEDSUPPLY Qty: 1 0RF Rx Instructions: As directed by HOME Discharge Orders: Discharge Order (Routine); Ordered 12/25/23 Ordered By: Fabrice Duval Referrals: Fabrcie Duval MD [Physician] - 01/17/24 10:40 am (2 weeks) Discharge Diet: Low Fat Discharge Activity: Resume usual activity Patient Instructions: Amoxicillin/Clavulanate Potassium (By mouth), Ondansetron (By mouth), Pantoprazole (By mouth), Meloxicam (By mouth), Cholecystitis (GEN), Acute Wound Care (DC), Opioid Safety, Post Anesthesia Care Activity Restrictions/Additional Instructions: No heavy lifting for the next 4 to 6 weeks, return to the hospital you have fever chills severe abdominal pain that is getting worse or yellowing of your skin. You can shower starting the day after tomorrow, let soap and water run over your wounds and then pat dry. Discharge Attestations Time Spent in Discharge Care*: less than 30 min Quality Metrics Clinical Quality Measures [ No reported AMI, CVA or VTE this stay] Coding Level of Care Code Acute Code for [facility] Fwd Diagnoses Biliary colic K80.50
--- NOTE | 2023-12-25 18:01 | ANE.PACU2 ---
Inpatient post-anesthesia follow up: Airway intact: Yes Vital signs: Temperature 97 F Pulse Rate 84 Respiratory Rate 18 Blood Pressure 140/91 Pulse Oximetry 97 Oxygen Delivery Me thod Room Air Oxygen Flow Rate Fraction of Inspir ed Oxygen Hydration adequate: Yes Nausea and vomiting: No Pain level: 2 Mental status: Baseline
[2023-12-25] MEDS: oxyCODONE 5 mg IR Tab/Cap PO (18:40)
== END 2023-12-25 20:10 | disposition home or self-care (01) ==
LOC: ER 20:19 → MEDSURG 20:45
PROVIDERS: Admitting Provider Surgery; Emergency Provider Emergency Medicine; Visit Provider Surgery
PROC: 0FT44ZZ Resection of Gallbladder, Percutaneous Endoscopic Approach (ICD-10-PCS; CPT 47562; principal; 2023-12-25 14:05)
DX: K80.10 Calculus of gallbladder with chronic cholecystitis without obstruction (principal); K21.9 Gastro-esophageal reflux disease without esophagitis; E66.01 Morbid (severe) obesity due to excess calories; Z68.38 Body mass index [BMI] 38.0-38.9, adult
CPT/HCPCS: 47562; 36415; 71045; 71275; 76705; 80048; 80053; 80076; 81001; 81025; 83605; 83690; 84484; 85025; 85378; 86140; 87077; 87086; 87186; 88304; 93005; 96365; 96375; 99285; G0378; J0330; J0696; J1100; J1200; J1885; J2250; J2270; J2405; J2543; J2704; J2710; J3010; J3490; J7030; J7120; Q9967

== ENCOUNTER 2024-02-11 18:26 | Emergency (ER) | payer SELFPAY ==
[2024-02-11] VITALS (7 sets, daily range): BP systolic 127–152; BP diastolic 89–99; PULSE 58–81; RESP 14–16; TEMP 36.6; O2SAT 93–99; BMI 34.5
[2024-02-11 18:57] LABS: Basophils % 0.3 %; Eosinophils % 0.1 %; Hematocrit 44.5 % (36-47); Lymphocytes # 1.6 10^3/uL (0.8-4.8); Lymphocytes % 16.2 %; Mean Corpuscular HGB Conc 33.7 g/dL (30-55); Mean Corpuscular Hemoglobin 28.5 pg (27-33); Mean Corpuscular Volume 84.6 fl (85-98); Mean Platelet Volume 10.9 fL (7.4-10.4); Monocytes # 0.6 10^3/uL (0.2-0.9); Monocytes % 5.5 %; Neutrophils # 7.87 10^3/uL (1.8-7.7); Neutrophils % 77.6 %; Nucleated Red Blood Cells % 0 %; Platelet Count 291 10^3/cmm (157-399); Red Blood Count 5.26 10^6/uL (3.85-5.65); Red Cell Distribution Width 13.4 % (12.1-15.1); White Blood Count 10.14 10^3/uL (3.29-11.43)
[2024-02-11 19:07] LABS: HCG, Serum Qual Negative (Negative)
[2024-02-11 19:15] LABS: Alanine Aminotransferase 58 U/L (0-33); Alkaline Phosphatase 95 U/L (35-105); Anion Gap 17.3 (5-19); Aspartate Amino Transferase 81 U/L (0-32); Blood Urea Nitrogen 13 mg/dL (6-20); Calcium 10.1 mg/dL (8.5-10.5); Carbon Dioxide 27 mmol/L (22-29); Chloride 95 mmol/L (98-107); Creatinine Clr Calc Pharmacy 107.4811; Globulin 3.2 g/dL (1.3-4.6); Glomerular Filtration Rate 83.7 mL/min (90-130); Glucose 101 mg/dL (65-115); Lipase 16 U/L (13-60); Osmolality Calculated 282 mOsm/kg (285-295); Potassium 3.3 mmol/L (3.5-5.1); Sodium 136 mmol/L (136-145); Total Bilirubin 0.6 mg/dL (0.15-1.2); Total Protein 8.2 g/dL (6.6-8.7)
--- NOTE | 2024-02-11 20:24 | CTR_ITS ---
PROCEDURE INFORMATION: Exam: CT Abdomen And Pelvis With Contrast Exam date and time: 02/11/2024 9:01 PM Age: 33 years old Clinical indication: Nausea and vomiting; Abdominal pain; Prior surgery; Surgery date: 1-6 months; Surgery type: Gb last month. Csection; Patient HX: C/O epigastric pain with n/v; Additional info: Epigastric pain, vomiting cholecystectomy 1 mo ago TECHNIQUE: Imaging protocol: Computed tomography of the abdomen and pelvis with contrast. Radiation optimization: All CT scans at this facility use at least one of these dose optimization techniques: automated exposure control; mA and/or kV adjustment per patient size (includes targeted exams where dose is matched to clinical indication); or iterative reconstruction. Contrast material: OMNI 350; Contrast volume: 100 ml; Contrast route: INTRAVENOUS (IV); COMPARISON: US gall bladder [id number] 12/24/2023 6:01 PM RADIATION DOSE METRICS: Total DLP (mGy-cm): 724.37 FINDINGS: Lungs: Subsegmental bibasilar atelectasis. 7 mm medial right lower lobe pulmonary nodule. The visualized lung bases are otherwise grossly clear. Diaphragm: No evidence of diaphragmatic defect. Liver: Hepatic steatosis. No evidence of focal hepatic lesion. Gallbladder and biliary ducts: Status post cholecystectomy. No evidence of intrahepatic or extrahepatic biliary dilatation. Pancreas: Unremarkable. Spleen: Unremarkable. Adrenal glands: Unremarkable. Kidneys and ureters: 2 mm nonobstructive right-sided renal stone. Otherwise no renal parenchymal abnormality. No hydronephrosis or ureteral stone. Stomach and bowel: No evidence of bowel obstruction or perienteric inflammatory changes. Few loops of mildly prominent and thickened proximal small bowel raising the question of a nonspecific enteritis. Appendix: Normal appendix. Intraperitoneal space: No evidence of free air or fluid collection. Vasculature: No aneurysmal dilatation or dissection of the abdominal aorta. The celiac trunk, SMA and JOSH are grossly patent. No evidence of IVC thrombus. The portal vein, SMV and splenic veins are grossly patent. Lymph nodes: No adenopathy. Urinary bladder: Grossly unremarkable. Reproductive: Grossly unremarkable. Bones/joints: No evidence of acute fracture or aggressive osseous lesion. Soft tissues: No evidence of fluid collection or hematoma in the superficial soft tissues. CT/CT abdomen pelvis w con* [id number] IMPRESSION: 1. Possible nonspecific enteritis. Otherwise no evidence of acute abnormality in the abdomen or pelvis. 2. Right lower lobe pulmonary nodule measuring 7 mm. Follow-up up CT of the chest in 6 months is recommended. References: Fadi Mcgee, et al. Guidelines for Management of Incidental Pulmonary Nodules Detected on CT Images: From the Fleischner Society 2017. Radiology. 2017;284(1):228-243.
[2024-02-11 20:52] LABS: Charge for UA Resulting for Rev
[2024-02-11 20:59] LABS: Bilirubin Urine Negative (Negative); Blood Urine Negative (Negative); Glucose Urine UA Negative (Normal); Ketones Urine 2+ (Negative); Leukocyte Esterase Urine 2+ (Negative); Nitrate Urine Negative (Negative); Protein Urine 1+ (Negative); Specific Gravity, Urine 1.023 (1.005-1.030); Urine Appearance Cloudy (CLEAR); Urine Color Yellow (Yellow)
[2024-02-11] MEDS: iohexol 350 mg/mL 500 mL Btl (per mL) IV (21:03)
[2024-02-11 21:04] LABS: Bacteria Urine 1+ /hpf; Hyaline Casts Urine 1.21 /lpf
--- NOTE | 2024-02-11 21:32 | W.ED.ABDPA2 ---
HPI - Abdominal Pain General: Chief Complaint: Abdominal Pain Stated Complaint: Vomiting\ABD Pain\Back Pain Time Seen by Provider: 02/11/24 20:18 History of Present Illness: 33-year-old female who is about 6 weeks status post laparoscopic cholecystectomy. She presents with abdominal pain, vomiting since Monday. She has vomited multiple times since Monday. She has not been able to hold anything down. She has tried drinking liquid, but a lot of it comes back up she says. She also had mild diarrhea at the beginning of her illness, but not since. No definite blood in the vomitus or stool. No fever although she has felt hot and cold. She has had a prior as well. No other abdominal surgeries. Related Data Previous Rx's Medication Instructions Recorded CAM Boot #1 ea 12/19/23 meloxicam 7.5 mg tablet 7.5 mg PO DAILY #7 tabs 12/25/23 pantoprazole 40 mg tablet,delayed 40 mg PO DAILY #14 tabs 12/25/23 release ondansetron 4 mg disintegrating 4 mg PO Q6H PRN nausea and 02/11/24 tablet vomiting #14 tabs Allergies Allergy/AdvReac Type Severity Reaction Status Date / Time No Known Allergies Allergy Verified 02/11/24 18:32 [facility] ED PFSH: Medical History Intermittent asthma with acute exacerbation Surgical History S/P tubal ligation (11/05/20) Complete bilateral salpingectomy performed at time of . Performed by Dr. Pak at [facility] in [place], [place]. S/P primary low transverse (11/05/20) With sterilization. DX: NRFHT. Performed by Dr. Pak at [facility] in [place], [place]. History of placement of ear tubes Family History Denies family history of Colon cancer Ovarian cancer Diabetes Clotting disorder Breast cancer Bleeding disorder Hypertension Uterine cancer Thyroid disease Stroke Social History Smoking and tobacco/nicotine status: tobacco/nicotine user, details unknown Substance/Drug Use: never Physical Exam Const: COMMON NORMALS: no acute distress GENERAL APPEARANCE: cooperative; not ill appearing and not frail appearing HENMT: COMMON NORMALS: normocephalic, atraumatic and Normal external nose present HEAD & SCALP: normocephalic and atraumatic FACE & SINUS: normal facial exam and face symmetric NOSE: Normal external nose present Eye: COMMON NORMALS: Equal, round and reactive pupils present and EOMs intact bilaterally PUPIL: Yes Equal, round and reactive pupils present Neck/C-Spine: GENERAL: Yes trachea midline Chest: CHEST: Yes Symmetrical chest wall rise Resp: COMMON NORMALS: normal respiratory effort, No retractions, No use of accessory muscles and clear to auscultation bilaterally AUSCULTATION: clear to auscultation bilaterally Cardio: COMMON NORMALS: regular rate and regular rhythm RATE: regular rate RHYTHM: regular rhythm GI: COMMON NORMALS: Soft to palpation INSPECTION: Yes abdominal distension PALPATION: Yes Soft to palpation and Yes Tenderness to palpation present (GI) (Diffuse) Extremity: COMMON NORMALS: no pedal edema Neuro: ROMAN COMA SCALE: document GCS findings Fairlee coma scale eye opening: Spontaneous [place]lee coma scale verbal response: Orientated [place]lee coma scale motor response: Obey commands Roman coma scale total score: 15 SENSORY EXAM: Yes extremities (intact) Psych: COMMON NORMALS: speech normal SPEECH: Yes normal speech Skin: COMMON NORMALS: no rashes or lesions noted GENERAL SKIN EXAM: no rashes or lesions noted Course Vital Signs: Vital signs: Vital Signs Temperature 97.9 F 02/11/24 18:32 Pulse Rate 58 L 02/11/24 23:00 Respiratory Rate 14 02/11/24 23:00 Blood Pressure 150/96 02/11/24 23:00 Pulse Oximetry 98 02/11/24 23:00 Oxygen Delivery Me thod Room Air 02/11/24 23:00 MDM - Abdominal Pain Medical Decision Making Vitals are stable. CBC is normal. BMP shows hypokalemia. Otherwise not remarkable. Minimal elevation in liver enzymes AST and ALT with a normal bilirubin. CT shows an enteritis. No evidence of complication of surgery. She is feeling better after fluid medication here. She will go home on antiemetics. Return for worsening. Lab Data 02/11/24 18:52 02/11/24 18:52 Labs/Radiology: Radiology Impressions Abdomen/Pelvis CT 02/11/24 20:24 IMPRESSION: 1. Possible nonspecific enteritis. Otherwise no evidence of acute abnormality in the abdomen or pelvis. 2. Right lower lobe pulmonary nodule measuring 7 mm. Follow-up up CT of the chest in 6 months is recommended. References: Fadi Mcgee et al. Guidelines for Management of Incidental Pulmonary Nodules Detected on CT Images: From the Fleischner Society 2017. Radiology. 2017;284(1):228-243. Laboratory Results WBC 10.14 10^3/uL (3.29-11.43) 02/11/24 18:52 RBC 5.26 10^6/uL (3.85-5.65) 02/11/24 18:52 Hgb 15.00 g/dL (11.27-16.99) 02/11/24 18:52 Hct 44.5 % (36-47) 02/11/24 18:52 MCV 84.6 fl (85-98) L 02/11/24 18:52 MCH 28.5 pg (27-33) 02/11/24 18:52 MCHC 33.7 g/dL (30-55) 02/11/24 18:52 RDW 13.4 % (12.1-15.1) 02/11/24 18:52 Plt Count 291 10^3/cmm (157-399) 02/11/24 18:52 MPV 10.9 fL (7.4-10.4) H 02/11/24 18:52 Neut % (Auto) 77.6 % 02/11/24 18:52 Lymph % (Auto) 16.2 % 02/11/24 18:52 Moffat % (Auto) 5.5 % 02/11/24 18:52 Eos % (Auto) 0.1 % 02/11/24 18:52 Baso % (Auto) 0.3 % 02/11/24 18:52 Neut # (Auto) 7.87 10^3/uL (1.8-7.7) H 02/11/24 18:52 Lymph # (Auto) 1.6 10^3/uL (0.8-4.8) 02/11/24 18:52 Moffat # (Auto) 0.6 10^3/uL (0.2-0.9) 02/11/24 18:52 Eos # (Auto) 0.0 10^3/uL (0.0-0.8) 02/11/24 18:52 Baso # (Auto) 0.0 10^3/uL (0.0-0.1) 02/11/24 18:52 Nucleated RBC % (auto) 0 % 02/11/24 18:52 Nucleated RBCs # 0.0 /100WBC 02/11/24 18:52 Sodium 136 mmol/L (136-145) 02/11/24 18:52 Potassium 3.3 mmol/L (3.5-5.1) L 02/11/24 18:52 Chloride 95 mmol/L (98-107) L 02/11/24 18:52 Carbon Dioxide 27 mmol/L (22-29) 02/11/24 18:52 Anion Gap 17.3 (5-19) 02/11/24 18:52 BUN 13 mg/dL (6-20) 02/11/24 18:52 Creatinine 0.8 mg/dL (0.5-0.9) 02/11/24 18:52 GFR Calculation 83.7 mL/min (90-130) L 02/11/24 18:52 Glucose 101 mg/dL (65-115) 02/11/24 18:52 Calculated Osmolality 282 mOsm/kg (285-295) L 02/11/24 18:52 Calcium 10.1 mg/dL (8.5-10.5) 02/11/24 18:52 Total Bilirubin 0.6 mg/dL (0.15-1.2) 02/11/24 18:52 AST 81 U/L (0-32) H 02/11/24 18:52 ALT 58 U/L (0-33) H 02/11/24 18:52 Alkaline Phosphatase 95 U/L (35-105) 02/11/24 18:52 Total Protein 8.2 g/dL (6.6-8.7) 02/11/24 18:52 Albumin 5.0 g/dL (3.5-5.2) 02/11/24 18:52 Globulin 3.2 g/dL (1.3-4.6) 02/11/24 18:52 Lipase 16 U/L (13-60) 02/11/24 18:52 HCG, Qual Negative (Negative) 02/11/24 18:52 Urine Color Yellow (Yellow) 02/11/24 20:47 Urine Appearance Cloudy (CLEAR) A 02/11/24 20:47 Urine pH 7.0 (5-7) 02/11/24 20:47 Ur Specific [place] 1.023 (1.005-1.030) 02/11/24 20:47 Urine Protein 1+ (Negative) A 02/11/24 20:47 Urine Glucose (UA) Negative (Normal) 02/11/24 20:47 Urine Ketones 2+ (Negative) H 02/11/24 20:47 Urine Blood Negative (Negative) 02/11/24 20:47 Urine Nitrate Negative (Negative) 02/11/24 20:47 Urine Bilirubin Negative (Negative) 02/11/24 20:47 Urine Urobilinogen 4.0 mg/dL (Negative) H 02/11/24 20:47 Ur Leukocyte Esterase 2+ (Negative) A 02/11/24 20:47 Urine RBC 3-5 /hpf (0-2) 02/11/24 20:47 Urine WBC 11-20 /hpf (0-5) H 02/11/24 20:47 Ur Squamous Epith Cells 6-10 /hpf (0-5) 02/11/24 20:47 Amorphous Sediment Not Reportable 02/11/24 20:47 Urine Bacteria 1+ /hpf (NONE) H 02/11/24 20:47 Hyaline Casts 1.21 /lpf 02/11/24 20:47 All radiology interpretation(s) finalized by discharge Discharge Plan Discharge Patient Disposition: Home Clinical Impression: Enteritis Condition: Stable Prescriptions: New ondansetron 4 mg tablet,disintegrating 4 mg PO Q6H PRN (Reason: nausea and vomiting) Qty: 14 0RF No Action (DME) CAM Boot See Rx Instructions .Route .MEDSUPPLY Qty: 1 0RF Rx Instructions: As directed by HOME meloxicam 7.5 mg tablet 7.5 mg PO DAILY Qty: 7 0RF pantoprazole 40 mg tablet,delayed release (DR/EC) 40 mg PO DAILY Qty: 14 0RF Discharge Orders: Discharge ED (Routine); Ordered 02/11/24 Ordered By: Jose R Neves Patient Instructions: Enteritis (ED), Opioid Safety, Pain Management Activity Restrictions/Additional Instructions: Take nausea medication scheduled every 4 hours while awake for the next 48 hours, then as needed following that. Return for continued vomiting despite treatment, fever, increasing pain, other concerning symptoms. See your doctor this week. Coding Level of Care Code ED Rack Worker for Roney Chahal
[2024-02-11] MEDS: sodium chloride 0.9% 1,000 ML 999 ML IV ×2 (21:34→22:30)
[2024-02-11] MEDS: morphine 4 mg/mL SDV 1 mL IVP (21:35)
[2024-02-11] MEDS: ketorolac 30 mg/mL INJ IVP (21:35)
[2024-02-11] MEDS: ondansetron 2 mg/ML SDV 2 mL 4 MG IVP (21:35)
[2024-02-11] MEDS: potassium chloride ER 20 mEq Tablet 40 MEQ PO (21:49)
== END 2024-02-11 23:52 | disposition home or self-care (01) ==
PROVIDERS: Emergency Medicine; Emergency Provider Emergency Medicine
DX: K52.9 Noninfective gastroenteritis and colitis, unspecified (principal); Z72.0 Tobacco use
CPT/HCPCS: 36415; 74177; 80053; 81003; 81015; 83690; 84703; 85025; 96361; 96374; 96375; 99285; J1885; J2270; J2405; J7030; Q9967

== ENCOUNTER 2025-01-15 19:43 | Emergency (ER) | payer SELFPAY ==
[2025-01-15 19:56] VITALS: BP 118/82; PULSE 83; RESP 17; TEMP 36.5; O2SAT 97; BMI 30.9
--- NOTE | 2025-01-15 20:05 | W.ED.BURNSMK ---
HPI - Burn/Smoke Inhalation General: Chief complaint: Burn/Smoke Inhalation Stated complaint: Burnt R pointer finger Time Seen by Provider: 01/15/25 20:03 History of Present Illness: 34-year-old female who presents emergency room after she burned her index finger. She has a small blister and some redness on the top of her index finger. Only to the top. No circumferential burning. No other diaz. She spilled hot water on the finger. Related Data Previous Rx's ?Medication ?Instructions ?Recorded sertraline 50 mg tablet (Zoloft) 50 mg PO DAILY #30 tabs 12/03/24 trazodone 50 mg tablet 100 mg (2 x 50 mg) PO .HS PRN 12/03/24 insomnia #60 tabs Allergies Allergy/AdvReac Type Severity Reaction Status Date / Time No Known Allergies Allergy Verified 01/15/25 19:58 Review of Systems Narrative: Constitutional symptoms: Negative except as documented in HPI. Skin symptoms: Negative except as documented in HPI. Eye symptoms: Negative except as documented in HPI. ENMT symptoms: Negative except as documented in HPI. Respiratory symptoms: Negative except as documented in HPI. Cardiovascular symptoms: Negative except as documented in HPI. Gastrointestinal symptoms: Negative except as documented in HPI. Genitourinary symptoms: Negative except as documented in HPI. Musculoskeletal symptoms: Negative except as documented in HPI. Neurologic symptoms: Negative except as documented in HPI. Psychiatric symptoms: Negative except as documented in HPI. Endocrine symptoms: Negative except as documented in HPI. [facility] ED PFSH: Medical History (Updated 01/15/25 @ 20:06 by Mackenzie Martinez MD) Psychiatric care Intermittent asthma with acute exacerbation Surgical History S/P tubal ligation (11/05/20) Complete bilateral salpingectomy performed at time of . Performed by Dr. Pak at [facility] in [place], [place]. S/P primary low transverse (11/05/20) With sterilization. DX: NRFHT. Performed by Dr. Pak at [facility] in [place], [place]. History of placement of ear tubes Family History Denies family history of Colon cancer Ovarian cancer Diabetes Clotting disorder Breast cancer Bleeding disorder Hypertension Uterine cancer Thyroid disease Stroke Social History Smoking and tobacco/nicotine status: tobacco/nicotine user, details unknown Substance/Drug Use: never Physical Exam Narrative: EXAM NARRATIVE: General: Alert, no acute distress. Skin: warm and dry. Index finger has a small, less than 1 cm blister on the dorsum and some redness. No full-thickness diaz. Noncircumferential Head: Normocephalic Neck: Trachea midline Eye: Extraocular movements are intact. Ears, nose, mouth and throat: Oral mucosa moist Respiratory: Respirations are non-labored Musculoskeletal: Normal ROM Gastrointestinal: Abdomen does not appear distended Neurological: Alert and oriented, No focal neurological deficit observed. Psychiatric: Cooperative, appropriate mood & affect. Course Vital Signs: Vital signs: Vital Signs Temperature 97.7 F 01/15/25 19:56 Pulse Rate 83 01/15/25 19:56 Respiratory Rate 17 01/15/25 19:56 Blood Pressure 118/82 01/15/25 19:56 Pulse Oximetry 97 01/15/25 19:56 Oxygen Delivery Me thod Room Air 01/15/25 19:56 MDM - Burn/Smoke Inhalation Medical Decision Making Assessment and plan: Burn ?[place] here and 1 for home. Discussed putting the finger in lukewarm to cool water but not in ice water as that will damage tissue. - Discharged home - Discussed plan with patient. Answered any questions. - Evaluation and treatment of this problem were appropriate in the emergency setting. No radiology studies performed this visit Discharge Plan Discharge Patient Disposition: Home Clinical Impression: Burn of index finger Condition: Stable Prescriptions: No Action sertraline [Zoloft] 50 mg tablet 50 mg PO DAILY Qty: 30 2RF trazodone 50 mg tablet 100 mg PO .HS PRN (Reason: insomnia) Qty: 60 2RF Discharge Orders: Discharge ED (Routine); Ordered 01/15/25 Ordered By: Mackenzie Martinez Discharge Diet: Usual diet Discharge Activity: Increase activity as tolerated Patient Instructions: Superficial Burn (ED), Opioid Safety, Pain Management, Patient Portal & Mimi Instructions Activity Restrictions/Additional Instructions: Thank you for choosing [facility] for your healthcare needs today. You have been screened and evaluated and felt safe for discharge. Health conditions do change or evolve sometimes and as such it is important that you follow up with your Primary Doctor to be re checked, 3-5 days is a general good time frame for follow up. You are always welcome to return to the ED for re assessment if your symptoms are worsening or you have new concerns Print Language: Australian Coding Level of Care Code ED Camera Engineer for Roney Chahal
[2025-01-15] MEDS: HYDROcodone-acetaminophen 5-325 mg Tablet 2 TAB PO (20:11)
[2025-01-15 20:15] VITALS: BP 117/69; PULSE 95; O2SAT 99
== END 2025-01-15 20:16 | disposition home or self-care (01) ==
PROVIDERS: Emergency Provider Emergency Medicine
DX: T23.021A Burn of unspecified degree of single right finger (nail) except thumb, initial encounter (principal); X11.8XXA Contact with other hot tap-water, initial encounter
CPT/HCPCS: 99283; J9999